=== PATIENT | female | born 1930 | race Caucasian/White ===

== ENCOUNTER 2016-10-12 08:28 | Inpatient (IN) | payer MEDICARE, OTHER, MEDICAID ==
[~2016-10-12] VITALS: Ht 170.2 cm; Wt 100.6 kg
--- NOTE | ~2016-10-12 | CATH ---
Cardiac Diagnostic + PCI Report Demographics Patient Name BRITTNEY Fatima Gender Female Date of 1930 Age 86 year(s) Patient Number [id number] Date of Study 10/12/2016 Visit Number [id number] Room Number G6317 [place] [id number] Ht 175 cm Wt 105 kg Referring [facility] [place] Primary Physician Physician Kaylene SMALL Performing [facility] [place] Secondary Physician Physician Kaylene SMALL Diagnostic [facility] [place] Assisting Physician Physician Kaylene SMALL Interventional [facility] [place] Physician Machine Scallop Cutter Physician Kaylene SMALL Findings and Conclusions Diagnostic Findings and Conclusion Subtotaled LAD 99% with grade 4 thrombus. Anterolateral STEMI. Moderate disease in mid RCA - medical therapy. Diagnostic Recommendations PCI of LAD is recommended. Interventional Findings and Conclusion Successful PCI of LAD with 1 MARINE, promus premier 3.0/16 stent deployed at 12 lindsay. Interventional Recommendations Will discuss with hospitalist team regarding need for Xarelto for DVT. I would prefer DAPT for 1 year. Patient will be observed overnight. Hydration and followup creatinine. Patient has been instructed to not lift anything more than 5 pounds for 1 week. Optimize LV systolic function. Aggressive medical therapy for coronary artery disease. Aggressive risk factor management. Statin. Beta Mary. GIOVANNA inhibitor is contraidicated . Dual Anti-platelet therapy. Optimization of medical therapy as an inpatient. Optimization of medical therapy as an outpatient. Cardiac diet . The patient will be observed in telemetry overnight and if stable, the patient will be allowed to return home in 48 hours if renal function stable, eGFR in 20's prior to cardiac cath. Procedure Description The patient was brought to the diagnostic cardiac catheterization-EP laboratory in the fasting, non-sedated state. Informed consent was obtained in the written and verbal form after the risks and benefits were explained. The patient had no further questions and agreed to proceed. The planned puncture-incision site(s) were shaved and prepped with ChloraPrep and draped in the usual sterile manner. Conscious sedation, supplemental oxygen, and pain control medications were delivered by a registered nurse under physician guidance. Surface ECG rhythm, blood pressure measurement, and pulse oximetry were monitored throughout the procedure. Arterial access. The access site was infiltrated with lidocaine. The vessel was entered with the Seldinger technique. A sheath was advanced into the vessel and used for catheter placement. Selective left coronary angiography. A catheter was advanced into the left coronary vessel ostium under Fluoroscopic guidance. Contrast was injected by hand. Images were obtained in multiple projections. Selective right coronary angiography. A catheter was advanced into the right coronary vessel ostium under fluoroscopic guidance. Contrast was injected by hand. Images were obtained in multiple projections. Left heart catheterization. A catheter was advanced across the aortic valve to the left ventricle under fluoroscopic guidance. Resting hemodynamics were obtained. Angioplasty and Stent Placement: A guiding catheter was used to intubate the vessel. A 0.14 wire was then used to cross the lesion. A balloon catheter was placed across the lesion and inflated. The balloon catheter was then removed. A Drug Eluting Stent was placed and inflated. Post placement angiograms were performed. Arterial artery hemostasis was achieved. The patient was transferred to a regular nursing floor via cart accompanied by a nurse. The patient left the laboratory in stable condition. Diagnostic Cath Status: Emergency Interventional Cath Status: Emergency Procedure Procedure Type Diagnostic procedure:Angiography:, Coronary Angios w/[facility] PCI procedure:Drug Eluting Coronary Stent:, LAD Indications: Acute IA with elevated troponin. The procedure was explained in detail to the patient. Risks, complications and alternative treatments were reviewed. Written consent was obtained. Medications Reviewed with Patient prior to Procedure. Angiographic Findings Dominance: Right Cardiac Arteries and Lesion Findings LMCA: Normal (0% Stenosis). LAD: Diag normal Lesion on Prox LAD: Proximal subsection.99% stenosis 14 mm length reduced to 0%. Pre procedure JESSICA I flow was noted. Post Procedure JESSICA III flow was present. The guidewire cross was successful.The lesion was diagnosed as a high risk lesion.Culprit lesion. Devices used - Runthrough NS .014 x 180. Number of passes: 1. - Emerge Balloon 2.5 x 20. 2 inflation(s) to a max pressure of: 12 lindsay. - Runthrough NS .014 x 180. Number of passes: 1. - Promus Premier 3.0 x 16 Stent. 2 inflation(s) to a max pressure of: 12 lindsay. LCx: Normal (0% Stenosis). RCA: PL and PDA normal Lesion on Prox RCA: Proximal subsection.50% stenosis . Coronary Tree Procedure Data Procedure Date Date: 10/12/2016Start: 09:10 AMEnd: 10:41 AM Entry Locations - Retrograde Percutaneous access was performed through the Right Radial artery (Primary location). A 6 Fr sheath was inserted. Unsuccessful closure attempt was performed using: an R band. Hemostasis was successfully obtained using Mechanical Compression. Closure Comments: R) band applied by Diomedes. 16 ml of air in band. Hematoma present around site. R) band removed. D stat radial band applied by Diomedes. Hand and arm wrapped to decompress hematoma. . Procedure Medications Order and Administration + + + + + !Time !Medication !Dosage !Route ! + + + + + !10/12/2016 09:08 !Versed !0.5 mg !I.V. ! !AM ! ! ! ! + + + + 10/12/2016 09:08 !Fentanyl !25 mcg !I.V. ! !AM ! ! ! ! + + + + + 10/12/2016 09:13 !Radial Verapamil !1.5 mg !I.A. ! !AM ! ! ! ! + + + + 10/12/2016 09:13 !Angiomax (Bivalirudin) !80 mg !I.V. bolus ! !AM !(ACC_5) ! ! ! + + + + + !10/12/2016 09:14 !Angiomax (Bivalirudin) !0.25 mg/kg/hr!I.V. bolus ! !AM !(ACC_5) ! ! ! + + + + 10/12/2016 09:15 !Oxygen !4 l/min ! ! !AM ! ! ! ! + + + + + 10/12/2016 09:36 !Fentanyl !25 mcg !I.V. ! !AM ! ! ! ! + + + + 10/12/2016 09:39 !Nipride !200 mcg !I.C. ! !AM ! ! ! ! + + + + + !10/12/2016 09:40 !Integrilin (ACC_7) !19 mg !I.V. bolus ! !AM ! ! ! ! + + + + + !10/12/2016 09:44 !Brilinta (Ticagrelor) !180 mg !P.O. ! !AM !(ACC_20) ! ! ! + + + + + !10/12/2016 10:04 !Angiomax (Bivalirudin) ! !I.V. bolus ! !AM !(ACC_5) ! ! ! + + + + + Devices Used - A6 Fr. JR4 Guide Catheterwas used for:Right coronary angiography. - A6 Fr. EBU 3.5 Guide Catheterwas used for:Left coronary angiography. Contrast Material - Isovue 91660 ml Fluoroscopy Time: Diagnostic: 13:06 minutes. Total: 13:06 minutes. Fluoroscopy Dose: Diagnostic: 1711 mGy. Total: 1711 mGy. Estimated Blood Loss: 15 ml. Additional [facility] PCI Information PCI Indication:Immediate PCI for STEMI. Medical History Performed Procedures and Imaging Results - No [facility] stress or imaging studies were performed. Allergies - Other:(vicadin and singular). Risk Factors The patient risk factors include:obesity, hypertension, diabetes mellitus, last creatinine: 2 mg/dl, creatinine clearance: 34.71 ml/min and renal failure. Admission Data Admission Date: 10/12/2016 Admission Time: 08:59 AM Insurance Payors: Medicare. Admission Medications + +------+-----+---------+---------+ + + !Medication !Dosage!Times!Last !Last !Administered !Comments ! ! ! !Per !Delivery !Delivery ! ! ! ! ! !Day !Date !Time ! ! ! + +------+-----+---------+---------+ + + !Aspirin (any) ! ! ! ! !Yes ! ! + +------+-----+---------+---------+ + + !Nitrates (iv or! ! ! ! !Yes ! ! !buccal) ! ! ! ! ! ! ! + +------+-----+---------+---------+ + + !Unfractionated ! ! ! ! !Yes ! ! !Heparin (any) ! ! ! ! ! ! ! + +------+-----+---------+---------+ + + Clinical Evaluation Leading to Procedure - The patient's CAD presentation was assessed as: STEMI. - The patient's anginal syndrome during the past two weeks was assessed as: Class IV according to the [place] Cardiovascular Society Classification System (CCS). Hemodynamics Condition: Rest O2 Consumption: Estimated: 210.35Heart Rate: 87 bpm Pressures (mmHg) +-----+ + !Site !Pressure ! +-----+ + !AO !142/72 (105) ! +-----+ + !LV !140/13 ,25 ! +-----+ + !LV !140/13 ,25 ! +-----+ + !AO !143/71 (104) ! +-----+ + !LV !143/13 ,25 ! +-----+ + Valve Gradients and Areas + +---------+---------+---------+ +---------+ + !Valve !Peak !Mean !Area !Index !Flow !Source ! + +---------+---------+---------+ +---------+ + !Aortic !3 !7 ! ! ! ! ! + +---------+---------+---------+ +---------+ + !Aortic !3 !7 ! ! ! ! ! + +---------+---------+---------+ +---------+ + Shunts Oxygen Values O2 Consumption 210.35 Signatures dtt: KAYLENE MACHADO dtd: 10/12/16 0910 Physician Self Edit
--- NOTE | ~2016-10-12 | CON ---
PATIENT'S NAME: ARI LUGO [facility] AGE: 86 Y [address] ROOM: [place] [address] LOCATION: GPCU ADMIT DATE: 10/12/2016 Consultation DISCHARGE DATE: FAMILY PHYSICIAN: Yesenia Gaitan PA-C ATTENDING PHYSICIAN: STAR MACHADO DATE OF CONSULTATION: 10/13/2016 REFERRING PHYSICIAN: Zoltan Singh This is a [facility] Nephrology consultation. REASON FOR CONSULTATION: CKD stage 3. HISTORY OF PRESENT ILLNESS: This is an 86-year-old female patient who presented to the [place] [facility] and was subsequently transferred to [facility] for higher level of care for cardiology needs with an ST elevation KS. The patient did undergo a left heart catheterization with PCI and stenting to the LAD by Dr. Maurice. The patient's creatinine at [place] prior to her transfer was 1.9. Today, her creatinine is 1.7 and therefore Nephrology has been asked to consult to help manage her CKD stage 3. The patient did receive IV contrast with her left heart catheterization. She does have a longstanding history of poorly controlled diabetes mellitus type 2, essential hypertension, and chronic gait instability requiring alf involvement. She does have a known history of CKD stage 3; however, she is unable to recall any of kidney problems in her past. She was recently treated for urinary tract infection. She does deny any NSAID use or PRATT-2 inhibitor use. She denies any GIOVANNA inhibitor or other nephrotoxic agents. At the time of exam, the patient is quite drowsy. I do note that on her MAR she does take a fair amount of gabapentin. Therefore, due to the patient's history of CKD, Dr. Singh has been asked to consult on the patient and provide recommendations for further management as an outpatient. PAST MEDICAL HISTORY: As listed above including, 1. CKD stage 3. 2. History of breast cancer, status post surgery. 3. Diabetes mellitus, poorly controlled. 4. Hypertension. 5. Diverticulosis. PATIENT'S NAME: ARI LUGO [facility] AGE: 86 Y [address] ROOM: [place] [address] LOCATION: GPCU ADMIT DATE: 10/12/2016 Consultation DISCHARGE DATE: FAMILY PHYSICIAN: Yesenia Gaitan PA-C ATTENDING PHYSICIAN: STAR MACHADO 6. GERD. 7. Hypothyroidism. 8. Gout. 9. Osteoarthritis. 10. Obesity. 11. History of DVT 5 years ago, on Xarelto therapy prior to her recent admission. ALLERGIES: TO SINGULAR AND VICODIN. CURRENT HOME MEDICATIONS: Include, 1. Acetaminophen 650 mg p.o. b.i.d. and q.4 hours p.r.n. pain. 2. Allopurinol 100 mg daily. 3. Atenolol 25 mg daily. 4. Refresh ophthalmic drops 1 drop each eye 4 times a day. 5. Eucalyptus cough drops every 8 hours p.r.n. 6. Lasix 20 mg p.o. t.i.d. 7. Gabapentin 600 mg p.o. q.h.s. and 300 mg p.o. b.i.d. 8. Robitussin DM 10 mL p.o. q.4 hours p.r.n. 9. Levemir 44 units subcu daily. 10. Levothyroxine 125 mcg p.o. daily. 11. Maalox p.r.n. 12. Milk of magnesia 30 mL p.o. p.r.n. 13. Mineral oil daily. 14. Omeprazole 40 mg p.o. daily. 15. Percocet 5/325 one tablet p.o. q.8 hours p.r.n. 16. Potassium 20 mEq p.o. daily. 17. Xarelto 20 mg p.o. daily (on hold). 18. Simethicone 80 mg p.o. q.3 hours p.r.n. 19. Spironolactone 25 mg p.o. b.i.d. 20. Tramadol 50 mg p.o. t.i.d. and 50 mg p.o. q.6 hours p.r.n. pain. FAMILY HISTORY: Reviewed and is negative for any history of renal disease or dialysis. Negative for coronary artery disease or stroke. SOCIAL HISTORY: The patient is and currently resides at [facility] in [place]. There is no history of tobacco abuse or alcohol use. REVIEW OF SYSTEMS: Essentially unable to obtain a full review of systems due to the patient's drowsy state and poor historian. There is no family available to offer any PATIENT'S NAME: ARI LUGO [facility] AGE: 86 Y [address] ROOM: [address] [place], [place] [address] LOCATION: GPCU ADMIT DATE: 10/12/2016 Consultation DISCHARGE DATE: FAMILY PHYSICIAN: Yesenia Gaitan PA-C ATTENDING PHYSICIAN: STAR MACHADO. She was noted to have right-sided chest discomfort prior to her arrival. PHYSICAL EXAMINATION: VITAL SIGNS: Blood pressure is 125/64, saturations are 88% on 2 L, pulse 82, respirations 20, and temperature 96.6. GENERAL: On exam, the patient is quite drowsy. She does arouse to calling. She is oriented x2. HEENT: Her head is normocephalic and atraumatic. Eyes: Pupils are equal and react briskly to light and accommodation. EOMs are intact. Nose midline. Mouth: No gingival bleeding. Throat is without lymphadenopathy or carotid bruits. No JVD. LUNGS: Sounds are diminished in the bases with occasional expiratory wheeze bilaterally, more so in the left than the right. She is on room air. CARDIOVASCULAR: Regular rate and rhythm. Unable to appreciate any murmurs, rubs, or thrills. There are occasional PVCs noted on telemetry. ABDOMEN: Soft, nontender, and nondistended. Bowel sounds are positive. EXTREMITIES: 1+ lower extremity edema bilaterally. She does have significant ecchymotic right hand and forearm. NEUROLOGICAL: The patient is hard of hearing. Mentation is slowed. LABORATORY DATA: WBCs 12.9, hemoglobin 13.7, hematocrit 41.3, and platelets 220. BUN is 30, creatinine 1.99, sodium and potassium are 131 and 4.1, chloride is 95, CO2 30, calcium 9.7, and glucose is elevated at 397. AST 24, ALT 25, bilirubin 0.5. Hemoglobin A1c was 13%. Chest x-ray shows enlarged cardiac silhouette. Increased interstitial opacities throughout both lungs. A prominence of the central pulmonary vessels suggesting interstitial edema and CHF. Superimposed chronic fibrotic changes may also contribute to this appearance. There is no discrete focal infiltrate, pleural effusion, or pneumothorax identified. ASSESSMENT AND PLAN: 1. Chronic kidney disease, stage 3-4. We will continue to monitor the patient's creatinine as well as urinary outputs closely. The patient did receive IV contrast with a left heart catheterization and is at high risk for developing contrast-induced nephropathy. She does have poorly controlled diabetes as well. We will continue to monitor. We would recommend IV hydration as tolerated. We will also recommend checking a vitamin D and PTH at this time. 2. ST-elevation myocardial infarction. The patient is status post percutaneous coronary intervention and stenting of the left anterior descending artery. Further recommendations per Dr. Maurice. 3. Diabetic neuropathy. We recommend decreasing the patient's gabapentin at this time due to her elevated renal function. We will discuss with Dr. Corrales. PATIENT'S NAME: ARI LUGO [facility] AGE: 86 Y [address] ROOM: [place] [address] LOCATION: GPCU ADMIT DATE: 10/12/2016 Consultation DISCHARGE DATE: FAMILY PHYSICIAN: Yesenia Gaitan PA-C ATTENDING PHYSICIAN: STAR MACHADO This patient has been seen and assessed by Dr. Singh. Her care is being conducted in consultation with Dr. Singh as well as me. We will plan further recommendations as they are forthcoming. AYDEE ANSARI DNP, REHAB/PRE VOCATIONAL COUNSELOR FOR MD STAN PISANO/modl /[id number] d: 10/14/[id number] t: 10/25/16 1151, CONSULTATION REPORT
--- NOTE | ~2016-10-12 | CON ---
PATIENT'S NAME: ARI MELTON [facility] AGE: 86 Y [address] ROOM: [place] [address] LOCATION: GPCU ADMIT DATE: 10/12/2016 Consultation DISCHARGE DATE: FAMILY PHYSICIAN: PHYSICIAN, UNKNOWN ATTENDING PHYSICIAN: STAR MACHADO DATE OF CONSULTATION: 10/12/2016 CARDIOLOGY CONSULTATION REPORT REASON FOR TRANSFER/CONSULTATION: STEMI. CHIEF COMPLAINT: Chest pain. HISTORY OF PRESENTING ILLNESS: The patient is a very pleasant 86-year-old female, who does not have any prior cardiac history. She has been a resident of the custodial for the past 4 to 5 years. She has numerous comorbidities. She went into the emergency room and her EKG showed ST elevation in the anterolateral leads with reciprocal ST depressions in the inferior leads for which Carlos Spann was called for STEMI. I asked them to give aspirin, heparin bolus and drip, and to arrange for air flight to get the patient directly to the cardiac catheterization lab. Upon arrival, patient was having significant amount of chest pain even en route. Her chest pain was about 9 to 10 on pain scale. She also was started on nitroglycerin drip en route. No significant shortness of breath. No other acute complaints. Her comorbidities include peripheral neuropathy, as well as history of breast cancer, hypothyroidism, diabetes mellitus, hypertension, hyperlipidemia, restless legs syndrome, tremors, chronic pain, hypertension, gastroesophageal reflux disease, diverticulosis of the colon, gout, and arthritis. She does not have any fever, chills, cough, or sputum production. She does not have any recent skin rashes. She does not have any bleeding in her stool or urine. The family reports that there may be history of dementia and loss of memory in PATIENT'S NAME: ARI MELTON [facility] AGE: 86 Y [address] ROOM: [place] [id number] LOCATION: GPCU ADMIT DATE: 10/12/2016 Consultation DISCHARGE DATE: FAMILY PHYSICIAN: PHYSICIAN, UNKNOWN ATTENDING PHYSICIAN: STAR MACHADO the recent past that they have been noticing. She does ambulate with a walker. Her functional capacity is quite poor. She does not have any stroke-like symptoms, changes in speech, or sensation swallowing. REVIEW OF SYSTEMS: Review of systems obtained from patient and pertinent positives and negatives mentioned in the History of Present Illness. PAST MEDICAL HISTORY: 1. Breast cancer. 2. Hypothyroidism. 3. Diabetes mellitus, type 2, insulin dependent. 4. Hypokalemia. 5. Hypothyroidism. 6. Restless legs syndrome. 7. Chronic pain. 8. Hypertension. 9. GERD. 10. Diverticulosis of the colon. 11. Gout. 12. Arthritis. PAST SURGICAL HISTORY: 1. Right hip hemiarthroplasty. 2. Bowel surgery for diverticulosis with colostomy bag. 3. Breast cancer status post right mastectomy. 4. Appendectomy. MEDICATIONS: Please see MAR. SOCIAL HISTORY: The patient does not smoke or drink alcohol. She is and lives at [facility]. ALLERGIES: SINGULAIR AND VICODIN. FAMILY HISTORY: No premature coronary artery disease or sudden cardiac . PHYSICAL EXAMINATION: PATIENT'S NAME: ARI MELTON [facility] AGE: 86 Y [address] ROOM: [place] [address] [facility] ADMIT DATE: 10/12/2016 Consultation DISCHARGE DATE: FAMILY PHYSICIAN: PHYSICIAN, UNKNOWN ATTENDING PHYSICIAN: STAR MACHADO VITAL SIGNS: She is afebrile. Pulse 60, respirations 16, blood pressure 120/70, and oxygen saturation 99% on room air. GENERAL: She is an elderly female, very comfortable does not have any chest discomfort right now. Alert and oriented. She does seem a little bit confused at times. She does answer questions appropriately and is cooperative. SKIN: Warm and dry. HEENT: Head; normocephalic and atraumatic. Extraocular movements intact. Sclerae are white. Mucous membranes moist. NECK: No JVD. HEART: S1 and S2. Regular rate and rhythm. A 2/6 systolic murmur at second rib. LUNGS: Clear to auscultation bilaterally. Radial pulses feeble 1+. No significant lower extremity edema. ABDOMEN: Soft. NEUROLOGIC: Able to move all extremities against gravity. Speech is normal. MUSCULOSKELETAL: Restricted range of motion in her legs and hips. IMAGING STUDIES: EKG; normal sinus rhythm, with ST elevation in the anterolateral leads with ST depressions in the inferior leads. LABORATORY DATA: Labs: CBC; WBC is 11.6, H and H are 14.8 and 46.8, and platelets are 230,000. She does have intraventricular conduction delay. Her creatinine was 2.2 from the outside hospital and GFR less than 30. Echocardiogram done in October of 2015 showed normal LV systolic function, LVEF of 55% to 60%, mild diastolic dysfunction, mild aortic valve calcification, mild mitral valve thickening, and mild MR and TR. Her proBNP today is 1354. Her troponin is 10.1, CPK is 1012, and CK-MB is 72. IMPRESSION AND PLAN: 1. Anterolateral ST-elevation myocardial infarction. Suspicious for left anterior descending occlusion. 2. Hypertension. 3. Hyperlipidemia. 4. Chronic kidney disease, stage 4. 5. Diabetes mellitus type 2, insulin dependent. 6. History of diverticulosis. 7. History of breast cancer. 8. Memory loss ? Alzheimer. Plan: The patient will be taken emergently to the cardiac catheterization lab for emergent/primary percutaneous coronary intervention and final plans will be made after that. We will continue her home medications. As far as the kidneys, we will use the least amount of contrast. At this point, the PATIENT'S NAME: ARI MELTON [facility] AGE: 86 Y [address] ROOM: [place] [address] [facility] ADMIT DATE: 10/12/2016 Consultation DISCHARGE DATE: FAMILY PHYSICIAN: PHYSICIAN, UNKNOWN ATTENDING PHYSICIAN: STAR MACHADO benefits are greater than the risks. The patient is a full code and wants everything done. The patient is agreeable to proceed with plan. We will optimize her cardiac medications and adjust her medications accordingly. Remote history of deep vein thrombosis several years ago for which she is on Xarelto. We need to determine the need to continue the Xarelto. Thank you very much for allowing us to participate in the care of Ms. Melton. We will have the patient admitted to hospitalist team since she has numerous comorbidities to help manage those as well as keep an eye on her kidney function. STAR MACHADO MD AT/modl /[id number] d: 10/12/16 1940 t: 10/15/16 1704, CONSULTATION REPORT
--- NOTE | ~2016-10-12 | CON ---
PATIENT'S NAME: ARI LUGO [facility] AGE: 86 Y [address] ROOM: [place] [address] LOCATION: GPCU ADMIT DATE: 10/12/2016 Consultation DISCHARGE DATE: FAMILY PHYSICIAN: PHYSICIAN, UNKNOWN ATTENDING PHYSICIAN: STAR MACHADO DATE OF CONSULTATION: 10/12/2016 CHIEF COMPLAINT: Medical management in the setting of ST-elevation ND. HISTORY OF PRESENTING ILLNESS: This 86-year-old white female with prior history of diabetes mellitus type 2, essential hypertension, and chronic gait instability. She was admitted to [facility] today by Dr. Wade with ST-elevation ND. Briefly, she was awoken around 05:30 this morning with right-sided burning chest pain. She states it was unlike any pain that she has ever experienced before. It did make her little nauseated and she vomited. She notified nursing staff and was taken to the [place] [facility] where ST- elevation ND was identified. Dr. Wade was consulted and she was transferred here emergently and taken to the labelling machine operator. She did undergo emergent cardiac catheterization with PCI and intervention. After the procedure, she has been transferred to the floor and feeling "better." She was noted to have significant renal impairment, although it is not documented well. She does have a history of chronic kidney disease, stage III. She denies any knowledge of previous kidney problems, although she was recently diagnosed and treated with urinary tract infection. Presently, she complains of a headache, but is feeling better now. She denies dizziness or nausea. No chest pain, shortness of breath, or abdominal pain. She has an ostomy bag and that has been functioning normally as of late. She denies any urinary complaints. Her appetite has been good. She eats and drinks normally. Family indicates that she has not adhered to a diabetic diet. Additionally, her blood sugars have not been well controlled. She ambulates with the use of a walker. She has not had any recent falls. ALLERGIES: SINGULAR AND VICODIN. ILLNESSES: 1. Breast cancer, status post surgery, no active disease. 2. Diabetes mellitus type 2. PATIENT'S NAME: ARI LUGO [facility] AGE: 86 Y [address] ROOM: [place] [id number] [facility] ADMIT DATE: 10/12/2016 Consultation DISCHARGE DATE: FAMILY PHYSICIAN: PHYSICIAN, UNKNOWN ATTENDING PHYSICIAN: STAR MACHADO 3. Essential hypertension. 4. Diverticulosis, status post bowel resection and colostomy placement. 5. Gastroesophageal reflux disease. 6. Hypothyroidism. 7. Chronic kidney disease, stage III. 8. Gout. 9. Osteoarthritis. 10. Obesity. 11. History of DVT 5 years ago. CURRENT MEDICATIONS: 1. Acetaminophen 650 mg p.o. b.i.d. and q.4 hours p.r.n. 2. Allopurinol 100 mg p.o. daily. 3. Atenolol 25 mg p.o. daily. 4. Refresh ophthalmic drops 1 drop each eye 4 times a day. 5. Eucalyptus cough drops every 8 hours p.r.n. 6. Lasix 20 mg p.o. t.i.d. 7. Gabapentin 600 mg p.o. q.h.s. and 300 mg p.o. b.i.d. 8. Robitussin DM 10 mL p.o. q.4 hours p.r.n. 9. Insulin Levemir 44 units subcu daily. 10. Levothyroxine 125 mcg p.o. daily. 11. Maalox p.r.n. 12. Milk of magnesia 30 mL p.o. daily p.r.n. 13. Mineral oil daily. 14. Omeprazole 40 mg p.o. daily. 15. Percocet 5/325 one tablet p.o. q.8 hours p.r.n. 16. Potassium 20 mEq p.o. daily. 17. Xarelto 20 mg p.o. daily. 18. Simethicone 80 mg p.o. q.3 hours p.r.n. 19. Spironolactone 25 mg p.o. b.i.d. 20. Tramadol 50 mg p.o. t.i.d. and 50 mg p.o. q.6 hours p.r.n. for pain. FAMILY HISTORY: Negative for heart disease or stroke. SOCIAL HISTORY: She is and currently resides at [facility] in [place]. There is no significant history of tobacco or alcohol use. REVIEW OF SYSTEMS: As per HPI. All other organ systems reviewed and are negative. OBJECTIVE: VITAL SIGNS: Temperature 97.6, pulse 82, respirations 20, blood pressure 125/64, and O2 saturation 88% on 2 L per nasal cannula. PATIENT'S NAME: ARI LUGO [facility] AGE: 86 Y [address] ROOM: [place] [address] LOCATION: GPCU ADMIT DATE: 10/12/2016 Consultation DISCHARGE DATE: FAMILY PHYSICIAN: PHYSICIAN, UNKNOWN ATTENDING PHYSICIAN: STAR MACHADO GENERAL: She is anxious, cooperative, a little hard of hearing, but in no acute distress. She is oriented x2. SKIN: Supple, pale, warm, and dry. No obvious rashes. Wound overlying the right wrist is clean and intact. HEENT: Otherwise, normocephalic. Sclerae nonicteric. Pupils are equal, round, and reactive to light and accommodation. Extraocular movements appear intact. Nasal turbinates normal in appearance. Oropharynx clear. Mucous membranes are pink and moist. NECK: Supple, plethoric, and obese. No masses or adenopathy. No thyromegaly. No JVD. CHEST: Chest wall is symmetrical. HEART: Regular with occasional extrasystoles. LUNGS: Diminished at the bases. No crackles or wheezes are heard. ABDOMEN: Soft and obese. Nontender. Bowel sounds present. No mass or hepatosplenomegaly. An ostomy is present in the left lower quadrant, which appears to be functioning normally. EXTREMITIES: Display 1 to 2+ pitting edema. No cyanosis. NEUROLOGIC: Hard of hearing, mentation is slowed, but there are no focal deficits. LABORATORY AND X-RAY DATA: Post procedure 12-lead EKG shows sinus rhythm with first-degree AV block, no significant ST abnormalities. CBC showed a white blood cell count of 12.9, hemoglobin 13.7, hematocrit 41.3, and platelets 220. Chemistries from [place] demonstrate BUN and creatinine of 30 and 1.99 respectively, sodium and potassium 131 and 4.1, chloride and CO2 were 95 and 30, calcium was 9.7, glucose was elevated at 397, AST and ALT 24 and 25, bilirubin was 0.5, troponin was elevated at 0.47, and CK-MB 4.8. An echo from October 2015 showed an ejection fraction of 55% to 60%, diastolic dysfunction. Hemoglobin A1c was 13%. Urinalysis remarkable only for a 1000 of glucose, 0 to 2 wbc's, and 2 to 5 rbc's. Chest x-ray demonstrates no acute cardiopulmonary abnormality. ASSESSMENT AND PLAN: 1. Diabetes mellitus type 2, uncontrolled. We will initiate sliding scale insulin in addition to the Levemir. Continue with Accu-Cheks regularly tonight and assess her insulin needs. We will consider adjusting the Levemir accordingly. Spent some time discussing this with the patient and her family, and they reflect lot of dietary indiscretion. It may be reasonable to consider adjusting her diet at the [facility] and more consistent blood sugar monitoring. 2. Acute kidney injury in the setting of chronic kidney disease, stage III. Suspect prerenal etiology. We will withhold any potentially nephrotoxic evaluations or medications. Follow this serially. Plan to get renal ultrasound in the morning and follow up on that when the results are known. Suspect progression of diabetic nephrosclerosis as a contributing PATIENT'S NAME: MANNY LUGOINE Kushal [facility] AGE: 86 Y [address] ROOM: [place] [address] LOCATION: GPCU ADMIT DATE: 10/12/2016 Consultation DISCHARGE DATE: FAMILY PHYSICIAN: PHYSICIAN, UNKNOWN ATTENDING PHYSICIAN: STAR MACHADO. Work on tighter glycemic control as above. 3. Deep vein thrombosis by history. This was a singular event over 5 years ago. There does not appear to be any clear indication for a long-term anticoagulation. Agree with stopping the Xarelto. 4. Essential hypertension, adequately controlled. We will monitor the trend and make the additional adjustments of the regimen if necessary. 5. ST-elevation myocardial infarction status post percutaneous coronary intervention with stenting, currently clinically stable. Continue with aspirin, Brilinta, and statin therapy. Plan, continued clinical followup. 6. Diverticulosis, status post bowel resection with ostomy placement. As above, the ostomy appears to be functioning normally. 7. Gait instability, chronic. She may benefit from some physical therapy and occupational therapy. We will review this with Cardiology, although she may eventually be referred to cardiac rehab. 8. Morbid obesity. We will need to work on some long-term strategies for weight loss including balanced dietary intake, calorie reduction, increased exercise, etc. 9. Gout, currently clinically asymptomatic. The allopurinol is on hold. We will check uric acid level in the morning. 10. Deep venous thrombosis prophylaxis. We will mobilize as she is physically able. MD NICK COURTNEY/ajith /[id number] d: 10/12/161930 t: 10/12/162000, CONSULTATION REPORT
--- NOTE | ~2016-10-12 | ECHO ---
Transthoracic Echocardiography Report (TTE) Demographics Patient Name ARI LUGO Date of Study 10/13/2016 Patient Number [id number] Visit Number [id number] Date of 1930 Room Number G6317 Gender Female Number Age 86 year(s) Referring Arnie Yesenia [facility] Polymer Chemist Judie Morton RVT, Physician Singh Maurice RDCS, MD Physician Interpreting Singh Maurice Deli/Bakery Associate Physician MD Supervising Ordering Singh Maurice MD/MLP Physician MD Nurse Stress President & Ceo Conclusions Summary Technically difficult exam. Definity used to better delineate endocardial borders. The estimated left ventricular ejection fraction is 25-30%. The entire apex is akinetic, severe anterior and anteroseptal wall hypokinesis. No LV apical thrombus. Severe concentric left ventricular hypertrophy. Diastolic assessment reveals Grade I diastolic dysfunction. The right atrium is mildly dilated. Mild mitral annular calcification. Mild tricuspid regurgitation by color Doppler. There is mild pulmonary hypertension. The pulmonary pressure (RVSP) is 42 mmHg. Small pericardial effusion. Procedure Type of Study TTE procedure:2D Echocardiogram. Procedure Date Date: 10/13/2016 Start: 08:50 AM Study Location: Inpatient Portable Technical Quality: Fair Indications:Myocardial infarction. Appropriate Use Criteria: 8 Patient Status: Routine Contrast Medium: Definity. Amount - 2.5 ml HR: 73 bpm BP: 126/60 mmHg Allergies - Other:(vicadin and singular). M-Mode/2D Measurements LV Diastolic Dimension: 4.13 cm LV Systolic Dimension: 3.66 cm LV Septum Diastolic: 2.06 cm LV PW Diastolic: 1.81 cm AO Root Dimension: 2.7 cm Cardiac Output: 3.93 l/min AV Cusp Separation: 1.6 cm RV Diastolic Dimension: 3.52 cm LA volume: 48 ml LVOT: 1.9 cm RV Base: 3.25 cm LVOT VTI: 19 cm RV Mid: 3.21 cm LV Stroke volume: 53.84 ml TAPSE: 9.21 cm TDI-S': 1.84 cm/s Doppler Measurements AV Peak Velocity: 1.02 m/s MV Peak E-Wave: 0.85 m/s AV Peak Gradient: 4.16 mmHg MV Peak A-Wave: 1.24 m/s AV Mean Gradient: 3 mmHg MV E/A Ratio: 0.68 LVOT Peak Velocity: 0.92 m/s MV Deceleration Time: 187 msec TR Velocity:3.04 m/s TR Gradient:36.97 mmHg Estimated PASP: 41.97 mmHg Estimated RAP:5 mmHg A' Septal Velocity: 0.07 m/s Estimated RVSP: 42 mmHg A' Lateral Velocity: 0.11 m/s E' Septal Velocity: 0.03 m/s E' Lateral Velocity: 0.05 m/s Findings Left Ventricle Severe concentric left ventricular hypertrophy. Diastolic assessment reveals Grade I diastolic dysfunction. Right Ventricle Normal right ventricle structure and function. Left Atrium Normal left atrial size. There is no evidence of patent foramen ovale or atrial septal defect by color Doppler. Right Atrium The right atrium is mildly dilated. Mitral Valve Mild mitral annular calcification. Aortic Valve The aortic valve is mildly sclerotic. Tricuspid Valve Mild tricuspid regurgitation by color Doppler. There is mild pulmonary hypertension. The pulmonary pressure (RVSP) is 42 mmHg. Pulmonic Valve Normal pulmonic valve structure and function. Pericardial Effusion Small pericardial effusion. Miscellaneous Visualized portions of the aortic root and ascending aorta appear normal in size. Pleural Effusion No evidence of pleural effusion. Signature dtt: STAR MACHADO dtd: 10/13/16 0850 Physician Self Edit
--- NOTE | ~2016-10-12 | DS ---
PATIENT'S NAME: ARI LUGO [facility] AGE: 86 Y [address] ROOM: [address] [place] [address] LOCATION: GPCU ADMIT DATE: 10/12/2016 Discharge Summary DISCHARGE DATE: 10/16/2016 FAMILY PHYSICIAN: Yesenia Gaitan PA-C ATTENDING PHYSICIAN: Kaylene Winters PRIMARY DISCHARGE DIAGNOSIS: Acute anterolateral ST elevated myocardial infarction. SECONDARY DIAGNOSES: 1. Coronary artery disease. 2. Ischemic cardiomyopathy. 3. Chronic kidney disease. 4. Hyperlipidemia. 5. Ejection fraction of 25 to 30%. 6. Acute systolic congestive heart failure. 7. Diabetes mellitus. 8. Dementia. PROCEDURES: Selective coronary angiography and percutaneous intervention with a drug-eluting stent placement to the LAD. HOSPITAL COURSE: This is an 86-year-old female admitted from a senior care with complaints of chest pain. Please see history and physical for full details of admission. The patient emergently transferred to the catheterization suite due to having an ST elevated myocardial infarction. She underwent a selective coronary angiography and percutaneous intervention with a drug-eluting stent placement to her LAD through her right radial artery. There was a hematoma with the closure device and was subsequently decompressed. The patient was then transferred to the Progressive Care Unit for continued monitoring of her EKG, postprocedure vital signs, and procedure site. A consult was placed to the Hospitalist Service to assist with medical management. On 12/13/2016, the patient had a nephrology consult placed due to [id number] kidney disease. On 10/14/2016, a urinalysis for electrolytes and osmolality as well as a serum osmolality showed a questionable contrast induced nephropathy. On 10/15/2016, her baseline creatinine returned to normal, and an overnight trend ox was placed to check for need prior to discharge. An order was also placed for a LifeVest due to the patient's acute systolic congestive heart failure and ischemic cardiomyopathy with an ejection fraction of 25 to 30%. On 10/16/2016, the patient was found to be ready to be discharged to home. DIAGNOSTICS: Cardiac enzyme evaluation during hospitalization showed an admission evaluation with a CPK of 1012, CK-MB of 72, and troponin I of 10.1. Cardiac enzymes peaked with a CPK of 3195, CK-MB of 345, and troponin I of PATIENT'S NAME: ARI LUGO [facility] AGE: 86 Y [address] ROOM: [id number] [place] [address] LOCATION: GPCU ADMIT DATE: 10/12/2016 Discharge Summary DISCHARGE DATE: 10/16/2016 FAMILY PHYSICIAN: Yesenia Gaitan PA-C ATTENDING PHYSICIAN: Kaylene Winters. Upon discharge, her cardiac enzymes showed a CPK of 432, CK-MB of 16.7, and troponin I of 36.2. Renal function upon admission showed a BUN and creatinine of 25 and 1.7 with a GFR of 29, and upon discharge, she had a BUN and creatinine of 26 and 2.0 respectively with a GFR of 24. She had a proBNP of 16,545 on discharge. A lipid evaluation showed a total cholesterol of 208, triglycerides 224, HDL of 34, and LDL of 130. DISCHARGE ORDERS: The patient is discharged back to [facility]. She is to follow up with Dr. Fulton in [place] in 3 to 4 days and then will follow up with Dr. Kaylene Winters in 2 weeks in [place] with a BMP, proBNP, fasting lipid panel, and an EKG. She will have lab work with her primary care provider as well as having a CBC and a BMP at that time. She is to follow a cardiac diet of low fat, low salt, and low cholesterol. She will have therapies with occupational and physical therapy. She does have a 10-pound lifting restriction for 1 week. DISCHARGE MEDICATIONS: 1. Tylenol 650 mg p.o. twice daily. 2. Tylenol 650 mg p.o. every 4 hours as needed for pain, not to exceed 3000 mg of Tylenol in a 24-hour period. 3. Aspirin enteric coated 81 mg p.o. daily. 4. Lipitor 40 mg p.o. daily at bedtime. 5. Lasix 40 mg p.o. daily. 6. Neurontin 100 mg p.o. 3 times daily. 7. NovoLog subcu on a moderate sliding scale per a.c. and h.s. Accu-Cheks. 8. Levemir 44 units subcu daily. 9. Synthroid 125 mcg p.o. daily. 10. Toprol-XL 25 mg p.o. daily. 11. Omeprazole 40 mg p.o. daily. 12. Brilinta 90 mg p.o. twice daily. 13. Glucagon 1 mg subcu p.r.n. hypoglycemia. 14. Glucose tabs 16 g p.o. as needed for hypoglycemia. 15. Robitussin DM 10 mL p.o. every 4 hours as needed for cough. 16. Milk of magnesia 30 mL p.o. daily as needed for constipation. 17. Nitroglycerin 0.4 mg sublingual as needed for chest pain. 18. Simethicone 80 mg p.o. every 3 hours as needed for indigestion. 19. Potassium chloride 20 mEq p.o. daily. 20. Ultram 50 mg p.o. 3 times daily. 21. Ultram 50 mg p.o. every 6 hours as needed for pain, not to exceed 400 mg in a 24-hour period. 22. Percocet 5/325 mg p.o. every 8 hours as needed for pain, not to exceed 3000 mg of Tylenol in a 24-hour period. 23. Zyloprim 100 mg p.o. daily. 24. Refresh eye drops four times daily as needed for dry eyes. 25. Refresh ointment to eyes four times daily as needed for dry eyes. PATIENT'S NAME: ARI LUGO [facility] AGE: 86 Y [address] ROOM: [address] [place] [address] [facility] AD[facility] DATE: 10/12/2016 Discharge Summary DISCHARGE DATE: 10/16/2016 FAMILY PHYSICIAN: Yesenia Gaitan PA-C ATTENDING PHYSICIAN: Kaylene Winters 26. Maalox 30 mL p.o. every 2 hours as needed for indigestion. 27. Eucalyptus cough drops one lozenge every 8 hours as needed for cough. 28. Refresh eye drops every 8 hours as needed for dry eyes. DISPOSITION: The patient is discharged to [facility] with her discharge packet for nursing instructions, with diet, activity, medications, and followup appointments. She is also discharged with a LifeVest in place. JEOVANNY LARSON APRN FOR KAYLENE KATIAALEKSANDERMD GARNICA/ajith /[id number] d: 10/22/16 0506 t: 11/05/16 1334, DISCHARGE SUMMARY
--- NOTE | ~2016-10-12 | PUL ---
PATIENT'S NAME: ARI LUGO [facility] AGE: 86 Y [address] ROOM: [place] [address] LOCATION: GPCU ADMIT DATE: 10/12/2016 Pulmonary DISCHARGE DATE: 10/16/2016 FAMILY PHYSICIAN: Yesenia Gaitan PA-C ATTENDING PHYSICIAN: Kaylene Winters NAME OF PROCEDURE: Overnight Pulse Oximetry DATE OF PROCEDURE: October 15 to October 16, 2016 REASON FOR EXAM: Nocturnal hypoxemia RESULTS: The test was performed on room air. The recording time was 9 hours, 2 minutes and 56 seconds, with a total valid sampling time of 8 hours, 42 minutes, and 4 seconds. The highest pulse was 108, lowest pulse was 69, with a mean pulse of 90. The highest SpO2 was 99%, lowest SpO2 was 87%, with a mean SpO2 of 91.8%. The patient spent 3 minutes, and 40 seconds with SpO2 less than 89%, representing 0.7% of the total sleep time, and 21 minutes and 20 seconds with oxygen saturations less than 90%. The desaturation event index was elevated at 7.9. PHYSICIAN INTERPRETATION: The patient does not have evidence of significant nocturnal hypoxia, unless she has evidence of heart failure/cor pulmonale. Clinical correlation is advised. MD JENNIFER LOBO/kaylie /[id number] dtt: 10/20/16 1620 , RASHAD SHAH dtd: 10/20/16 1323
[2016-10-12 10:17] LABS: BASOPHIL # 0.1 K/uL (0.0-0.2); BASOPHIL % 0.5 %; EOSINOPHIL % 0.3 %; HEMATOCRIT 41.3 % (30.0-46.0); HEMOGLOBIN 13.7 g/dL (10.0-15.0); IMMATURE GRANULOCYTE # 0.1 K/uL (0.0-0.3); IMMATURE GRANULOCYTE % 0.6 %; LYMPHOCYTE # 0.9 K/uL (0.8-4.0); LYMPHOCYTE % 6.7 %; MCH 29.9 pg (27.0-34.0); MCHC 33.2 gm/dL (32.0-36.5); MCV 90.2 fl (83.0-98.0); MONOCYTE # 0.5 K/uL (0.0-1.0); MONOCYTE % 4.2 %; MPV 11.7 fl (9.4-12.4); NEUTROPHIL # (ANC) 11.3 K/uL (1.8-7.8); NEUTROPHIL % 87.7 %; NRBC % 0 /100WBC (0-0.00); PLATELET COUNT 220 K/uL (150-450); RBC 4.58 M/uL (3.00-5.00); RDW-CV 14.9 % (11.9-14.6); WBC 12.9 K/uL (4.0-11.0)
[2016-10-12] MEDS ORDERED: TYLENOL325 MG PO ×2 (11:06→11:32)
[2016-10-12] MEDS ORDERED: LASIX40 MG PO (11:11)
[2016-10-12] MEDS ORDERED: TENORMIN25 MG PO (11:12)
[2016-10-12] MEDS ORDERED: ZYLOPRIM100 MG PO (11:14)
[2016-10-12] MEDS ORDERED: K-TAB ER20 MEQ PO (11:15)
[2016-10-12] MEDS ORDERED: NEURONTIN600 MG PO (11:15)
[2016-10-12] MEDS ORDERED: ULTRAM50 MG PO ×2 (11:16→11:30)
[2016-10-12] MEDS ORDERED: PRILOSEC20 MG PO (11:17)
[2016-10-12] MEDS ORDERED: LEVOTHROID (S125 MCG PO (11:17)
[2016-10-12] MEDS ORDERED: XARELTO20 MG PO (11:23)
[2016-10-12] MEDS ORDERED: ALDACTONE25 MG PO (11:24)
[2016-10-12] MEDS ORDERED: NEURONTIN100 MG PO (11:25)
[2016-10-12] MEDS ORDERED: REFRESH TEARS15 ML OPHTH ×2 (11:26→11:34)
[2016-10-12] MEDS ORDERED: REFRESH P.M. O3.5 GM OPHTH (11:28)
[2016-10-12] MEDS ORDERED: MILK OF MA400 MG/5 M PO (11:28)
[2016-10-12] MEDS ORDERED: MAALOX ADVANCE355 ML PO (11:29)
[2016-10-12] MEDS ORDERED: ROBITUSSIN DM120 ML PO (11:31)
[2016-10-12] MEDS ORDERED: COUGH DROPS1 EACH PO (11:33)
[2016-10-12] MEDS ORDERED: PERCOCET 5-3251 EACH PO (11:36)
[2016-10-12] MEDS ORDERED: MYLICON OR GAS-80 MG PO (11:37)
[2016-10-12] MEDS ORDERED: LEVEMIR100 UNIT/1 SUB-Q (11:42)
[2016-10-12 12:39] LABS: BILIRUBIN URINE NEGATIVE (NEGATIVE); BLOOD URINE 250 /UL (NEGATIVE); COLOR URINE STRAW (YELLOW); GLUCOSE URINE 1000 mg/dL (NEGATIVE); KETONE URINE NEGATIVE (NEGATIVE); LEUKOCYTES URINE 100 /UL (NEGATIVE); NITRITE URINE NEGATIVE (NEGATIVE); PH URINE 6.5 (4.0-8.0); PROTEIN URINE 30 mg/dL (NEGATIVE); TURBIDITY URINE 1+ (CLEAR); UROBILINOGEN URINE NORMAL (NORMAL)
[2016-10-12 12:47] LABS: WBC URINE 0-2 #/HPF (NEGATIVE)
[2016-10-12 12:48] LABS: BACTERIA URINE FEW (NEGATIVE); EPITHELIAL URINE RARE #/HPF (NEGATIVE); YEAST URINE MANY (NEGATIVE)
--- NOTE | 2016-10-12 16:40 | NUR ---
1045 PT ADMITTED TO [id number] PANDYA AND [facility] POST STEMI HEART CATH. AT TIME OF ADMIT PT IS ALERT, SLIGHTLY DISORIENTED, BUT DAUGHTER SAYS THIS IS HER BASE LINE. SHE IS FROM A [place]USTOD[facility] IN [place], WOKE THIS AM WITH CHEST PAIN, WENT TO [facility] THEN [facility]ARE HERE AND STRAIGHT TO SENIOR ART DIRECTOR FOR A STENT TO THE LAD. RT RADIAL APPROACH. WHENPT GOT TO ME AT 1045, RT HAND WAS PURPLE AND VERY COOL TO TOUCH, R BAND ON AND WRAPPED IN COBAN FROM FINGER TIPS TO ALMOST HER ELBOW. PT HAD BEEN TAKING ELIQUIST AT HOME. SITE FROM HRT CATH WAS NOT LEAKING BUT SITE OF LIDOCAIN INJECTION WAS SEEPING SOME, NOT ALOT BUT STEADILY. ARM WAS ON AN ARM BOARD. DAUGHTER AND GRAND DAUGHTER IN ROOM AND ARE THE HISTORIANS FOR THE PT, ALTHOUGH SHE HAS BEEN IN THE CUSTODIAL FOR 5 OR SO YEARS, SO THEY DON'T SEEM TO KNOW ALOT ABOUT HER HISTORY. 1215 DR PANDYA IN TO SEE PT AND RT WRIST NEW ORDERS RECEIVED. SENIOR ART DIRECTOR NURSES HERE TO REWRAP WRIST AND TRY TO REDUCE HEMATOMA. COABN OFF, R BAND OFF. DESTAT ON SITE OF CATH STICK, AND TEGADERM PLACED VERY SNUGGLY ACROSS THE TOP OF THAT ORDERED. FINGERS AND HAND OVERALL IS WARMER NOW AND LESS PURPLE. NAIL BEDS BRISA BUT SLUGGISHLY. PULSES IS PALPABLE AND FAIRLY STRONG. ARM IS STILL ON AN ARM BOARD. ARM ELEVATED ON TWO PILLOWS AND A WARM BLANKET AROUND THAT. ABLE TO GET SATS NOW FROM THOSE FINGERS. BUT THEY ARE STILL COOL TO THE TOUCH. 1400 ARM REMAINS ELEVATED ON PILLOWS. STILL SWOLLEN AND VERY TENDER ON THE TOP OF HER HAND WHERE THAT LARGEST PART OF THE HEMATOMA WAS. PT DENIES ANY PAIN UNLESS YOU START MESSING WITH THE TOP OF HER HAND OR SQUEEZE SLIGHTLY TO PALPATE A RADIAL PULSE. PT HAS DENIED CHEST PAIN SINCE ARRIVAL TO PCU. NTG 3 MICS AND NS 100 FOR 500 MLS CONTINUE. 1600 NO CHANGES IN ASSESSMENTS. ARM STILL COOL TO TOUCH, BUT HAS NOT GOTTEN ANY WORSE, STILL ABLE TO PALPATE RADIAL PULSE. NO CHANGES IN SWELLING. VERY SLIGHT AMT OF DRAINAGE TO DESTAT SINCE SENIOR ART DIRECTOR CHANGED IT AT 1245. WRAPPED IN BLANKET AND ON PILLOWS. DAUGHTER IN AND OUT OF ROOM. PT DENIES NEEDS OR PAIN.
[2016-10-13 04:05] LABS: BASOPHIL # 0.1 K/uL (0.0-0.2); BASOPHIL % 0.5 %; EOSINOPHIL # 0.2 K/uL (0.0-0.5); EOSINOPHIL % 1.7 %; HEMATOCRIT 41.2 % (30.0-46.0); HEMOGLOBIN 13.4 g/dL (10.0-15.0); IMMATURE GRANULOCYTE # 0.1 K/uL (0.0-0.3); IMMATURE GRANULOCYTE % 0.5 %; LYMPHOCYTE # 1.3 K/uL (0.8-4.0); LYMPHOCYTE % 10.4 %; MCH 29.8 pg (27.0-34.0); MCHC 32.5 gm/dL (32.0-36.5); MCV 91.6 fl (83.0-98.0); MONOCYTE # 0.9 K/uL (0.0-1.0); MONOCYTE % 7.1 %; MPV 11.8 fl (9.4-12.4); NEUTROPHIL # (ANC) 10.3 K/uL (1.8-7.8); NEUTROPHIL % 79.8 %; NRBC % 0 /100WBC (0-0.00); PLATELET COUNT 203 K/uL (150-450); RDW-CV 15.1 % (11.9-14.6); WBC 12.9 K/uL (4.0-11.0)
[2016-10-13 04:26] LABS: ALBUMIN 2.5 gm/dL (3.5-5.0); ANION GAP 12.3 (10.0-19.0); CALCIUM 8.4 mg/dL (8.5-10.5); CREATININE 1.7 mg/dL (0.5-1.1); POTASSIUM 4.3 mMol/L (3.7-5.1); TOTAL BILIRUBIN 0.6 mg/dL (0.0-1.5); TOTAL PROTEIN 6.2 g/dL (6.0-8.4)
--- NOTE | 2016-10-13 06:48 | NUR ---
Significant Event: Patient disoriented to time and place. Oriented to person. Forgetful. Makes confused statements at times. SBP 90s-130s. All other vital signs stable. On 4L O2 per NC. Nitro gtt continues at 5mg/hr to Lf Wrist PIV. NS TKO. Lf AC PIV saline locked. No complaints of chest pain. Patient very drowsy. Slept well throughout shift. Rt. radial site eccymotic and swollen. Fingers, hand, and arm purple. Destat saturated with drainage. No changes throughout shift. Pulse palpable. Movement and feeling unchanged. Patient turned Q2 hours. Juárez patent with 450ml uop. Ostomy bag did not need emptied this shift. Patient calm and cooperative with all cares. Follow up: Will continue to monitor Rt. hand, CP, and vitals.
--- NOTE | 2016-10-13 09:05 | NUR ---
DIABETES CONSULT: Patient with A1C of 13% and resides at [facility]. Her medication list indicates she was receiving Levemir 44 units at the snf for her diabetes. Given the patient's A1C, anticipate she will need Novolog dosing with meals upon discharge. Patient will be given Novolog Moderate correction today in addition to her Levemir 44 units. Patient is not a candidate for education. Will continue to trend blood sugars today and reevaluate in the morning.
--- NOTE | 2016-10-13 13:23 | NUR ---
Reviewed chart, patient resides at [facility]. Will discharge back there when ready for discharge.
--- NOTE | 2016-10-13 17:00 | NUR ---
Significant Event: Disoriented to time/place. Forgetful at times. VSS on 2L NC. L)AC and L) wrist IVs saline locked. R) radial cath site still has hematomma/eccymosis but is improving. Gauze/tagaderm changed and C/D/I. 3+ edema in R) hand and thready pulse. Patient denies numbness and tingling. Patient ambulated in halls x2 with therapy about 50ft at a time. Lasix 40mg given x1. Echo completed and renal ultrasound completed. Nephrology consulted. Strict I/O and daily weights ordered.
--- NOTE | 2016-10-13 17:07 | NUR ---
Received call from patient nurse that family wants to talk with me. I went to waiting room and talked with 3 daughters and granddaughter. They have called [facility] in [place] and talked with Manuela and they have a private room open and would like their mom to move there on discharge. Let them know I will start referral to Manuela first thing in the morning and that if they accept thats fine, will plan on dc to them when physician indicates ready for discharge. Also discussed if for some reason [place] cannot accept and physician says ready for discharge, then she would discharge back to [facility] and they can work on moving to other SNF from there. They are agreeable with this plan. Will call daughter Chyna Encarnacion [phone] or granddaughter Sharmila Linda [phone] with update tomorrow if not in patient room. They report their mom doesn't know they want her to move yet, but daughter Chyna will talk with her about it once she knows has been accepted at [facility]. Will follow.
[2016-10-14 04:01] LABS: ALBUMIN 2.6 gm/dL (3.5-5.0); ANION GAP 11.2 (10.0-19.0); CALCIUM 8.9 mg/dL (8.5-10.5); CREATININE 1.9 mg/dL (0.5-1.1); POTASSIUM 4.2 mMol/L (3.7-5.1); TOTAL BILIRUBIN 0.6 mg/dL (0.0-1.5); TOTAL PROTEIN 5.7 g/dL (6.0-8.4)
[2016-10-14 04:33] LABS: BASOPHIL # 0.1 K/uL (0.0-0.2); BASOPHIL % 0.8 %; EOSINOPHIL # 0.3 K/uL (0.0-0.5); EOSINOPHIL % 2.8 %; HEMATOCRIT 43.8 % (30.0-46.0); HEMOGLOBIN 14.1 g/dL (10.0-15.0); IMMATURE GRANULOCYTE # 0.1 K/uL (0.0-0.3); IMMATURE GRANULOCYTE % 0.8 %; LYMPHOCYTE # 1.4 K/uL (0.8-4.0); MCH 29.6 pg (27.0-34.0); MCHC 32.2 gm/dL (32.0-36.5); MCV 91.8 fl (83.0-98.0); MONOCYTE % 8.4 %; MPV 11.6 fl (9.4-12.4); NEUTROPHIL # (ANC) 8.9 K/uL (1.8-7.8); NEUTROPHIL % 75.2 %; NRBC % 0 /100WBC (0-0.00); PLATELET COUNT 201 K/uL (150-450); RBC 4.77 M/uL (3.00-5.00); RDW-CV 15.2 % (11.9-14.6); WBC 11.9 K/uL (4.0-11.0)
--- NOTE | 2016-10-14 05:09 | NUR ---
Significant event: Alert to self only. Up with 2 assist. On 2L Nc with sats in the mid to upper 90's. All other VSS. Juárez intact with 400ml of UOP. Right radial site ecchymotic, pulses palpable in both hands. No c/o pain throughout night.
--- NOTE | 2016-10-14 08:38 | NUR ---
Diabetes Consult: Patient with blood sugars running 193-277 yesterday. The patient did receive her first dose of Levemir 44 units yesterday morning at 0800. Fasting blood sugars much improved with morning at 155. The patient is receiving Novolog correction as well. Will continue to follow throughout the day. Anticipate she will do well on the current insulin regimen.
--- NOTE | 2016-10-14 09:42 | NUR ---
Called [facility] [phone] and faxed referral to Manuela at [phone]. She will review and call me back to let me know if they can accept tomorrow. Will follow.
--- NOTE | 2016-10-14 14:36 | NUR ---
Received message from Manuela at [facility] that they can accept when ready for discharge. Also that family needs to contact a local physician to follow her there. I called daughter Chyna Encarnacion [phone] and let her know the above, she will talk to her sister about what doctor and then call to ask them to accept and get us their phone number for our doctor to call them when discharged. Anticipate tomorrow possibly? I then called food services director at [facility] Yesenia and let her know, will touch base with them in the morning.
--- NOTE | 2016-10-14 16:09 | NUR ---
Significant Event: A/Ox3. VSS stalbe. Room air while awake and 2L while sleeping. Dioriented to time and place. Drowsy at times. Lungs slightly coarse in the bases with some expirtory wheezes noted. Ambulated in halls x2. Decreased appetite. Juárez had 1575ml out of clear yellow urine. Some pink tinged urine at end of shift from catheter being pulled. Ostomy had 1 mod BM semi formed. Patient denies pain.
[2016-10-15 03:42] LABS: BASOPHIL # 0.1 K/uL (0.0-0.2); BASOPHIL % 0.7 %; EOSINOPHIL # 0.3 K/uL (0.0-0.5); EOSINOPHIL % 2.2 %; HEMATOCRIT 42.3 % (30.0-46.0); HEMOGLOBIN 13.7 g/dL (10.0-15.0); IMMATURE GRANULOCYTE # 0.1 K/uL (0.0-0.3); IMMATURE GRANULOCYTE % 0.6 %; LYMPHOCYTE # 1.6 K/uL (0.8-4.0); LYMPHOCYTE % 13.4 %; MCH 29.7 pg (27.0-34.0); MCHC 32.4 gm/dL (32.0-36.5); MCV 91.8 fl (83.0-98.0); MONOCYTE % 8.3 %; MPV 11.7 fl (9.4-12.4); NEUTROPHIL % 74.8 %; NRBC % 0 /100WBC (0-0.00); PLATELET COUNT 233 K/uL (150-450); RBC 4.61 M/uL (3.00-5.00); RDW-CV 15.1 % (11.9-14.6); WBC 12.1 K/uL (4.0-11.0)
[2016-10-15 03:57] LABS: ALBUMIN 2.6 gm/dL (3.5-5.0); ANION GAP 13.6 (10.0-19.0); CALCIUM 8.9 mg/dL (8.5-10.5); CREATININE 1.9 mg/dL (0.5-1.1); PHOSPHORUS 2.3 mg/dL (2.5-4.9); POTASSIUM 3.6 mMol/L (3.7-5.1)
--- NOTE | 2016-10-15 04:54 | NUR ---
Significant Event: PATIENT IS DIORIENTED TO TIME/PLACE AND FORGETFUL. VSS. HR 70-80'S. SBP 100-120'S. AFEBRILE. 02 SATS IN LOW 90'S ON RA. STARTED ON 2L 02 DUE TO SLEEP APNEA. DESATS IN 80'S WHILE SLEEPING. NO C/O PAIN. LUNGS CLEAR/DIM WITH OCCASIONAL WHEEZES. UP WITH 2A WITH WALKER/GB. HAS OSTOMY TO LEFT LOWER QUADRANT. NO BM THIS SHIFT BUT PATIENT APPEARS TO BE DISTENDED. SEEMS TO BE BASELINE. DELGADO INTACT WITH 1125 ML UOP. RIGHT RADIAL HEMATOMA INTACT. AREA ECCHYMOTIC WITH GOLF BALL SIZED HEMATOMA AND RADIAL SITE WHERE CATH PROCEDURE WAS. SITE OPEN TO AREA. PULSE THREADY OTHERWISE CSM WNL. IV TO LEFT HAND SL. CONTINUES TO HAVE 1-2+ GENERALIZED EDEMA. ON ACHS ACCUCHECKS. Follow up: CONTINUE TO MONITOR KIDNEY FUNCTION AND PER PLAN OF CARE.
[2016-10-15 12:11] LABS: BILIRUBIN URINE NEGATIVE (NEGATIVE); BLOOD URINE 10 /UL (NEGATIVE); GLUCOSE URINE NEGATIVE (NEGATIVE); KETONE URINE NEGATIVE (NEGATIVE); LEUKOCYTES URINE 100 /UL (NEGATIVE); NITRITE URINE NEGATIVE (NEGATIVE); PROTEIN URINE NEGATIVE (NEGATIVE); UROBILINOGEN URINE NORMAL (NORMAL)
[2016-10-15 12:12] LABS: COLOR URINE COLORLESS (YELLOW); TURBIDITY URINE CLEAR (CLEAR)
[2016-10-15 12:38] LABS: AMORPHOUS URINE 1+ (NEGATIVE); BACTERIA URINE NEGATIVE (NEGATIVE); EPITHELIAL URINE NEGATIVE #/HPF (NEGATIVE); WBC URINE 50-100 #/HPF (NEGATIVE)
--- NOTE | 2016-10-15 14:49 | NUR ---
Talked with tanisha Clemente today [phone] Isidro Fulton will follow her mom at [facility], his phone number is [phone], I left that phone number on the chart for our physician to call on discharge, he hasn't seen patient before. Talked with patient nurse and then Manuela at [facility], pt getting overnight trend ox tonight and then likely ready for dc tomorrow, Manuela will call with time that works that they can come get pt, daughter requested that. Then was reviewing chart and talked with Jt Harrison APRN and pt will get lifevest fitted before she discharges as well. Called Tyler Zabala with [facility] [phone] and discussed pt dc plan for skilled stay at [facility], he can send a nurse out to [place] tomorrow to teach them how to put on the Lifevest and how to manage it there. I called [facility] back and left voicemail for Manuela with [facility] information and waiting for call back from them that they are okay to accept with [facility] and to give them Tyler's number to set up time to teach. Let tanisha Perea know that [phone]. Will follow.
--- NOTE | 2016-10-15 15:26 | NUR ---
Received call back from Manuela at [facility], they will call Tyler Zabala to ask questions about the Lifevest and then arrange time for [facility] Nurse to teach their staff about the Lifevest. She will call me back to let me know when they can accept.
--- NOTE | 2016-10-15 16:54 | NUR ---
Significant Event: VSS ON RA. OVERNIGHT TREND OX SCHEDULED THIS EVENING D/T SLEEP APNEA AND 1L/NC REQUIRED LASTNOC TO KEEP SATS >90%. LUNGS CLEAR/DIM. NO C/O PAIN. NEW PIV TO L) AC 22G SL'D. LASIX IV CHANGED TO PO 40MG BID. DELGADO TO DD WITH >2200ML UOP. ORDER FOR DELGADO TO BE DC'D THIS EVENING. PATIENT TO BE DISMISSED TO [facility] TOMORROW AFTER [facility] REP FITS PATIENT AND EDUCATES MO STAFF. WALKED IN HINES WITH CARDIAC REHAB AND PT, 1PA WITH WALKER AND GAIT BELT. ACHS ACCUCHECKS. LABS TODAY AND UA COMPLETE. Follow up: DC TO [facility] TOMORROW. EXIT ALARMS ON AT ALL TIMES.
[2016-10-16 04:17] LABS: BASOPHIL # 0.1 K/uL (0.0-0.2); BASOPHIL % 0.8 %; EOSINOPHIL # 0.2 K/uL (0.0-0.5); EOSINOPHIL % 1.3 %; HEMOGLOBIN 14.3 g/dL (10.0-15.0); IMMATURE GRANULOCYTE # 0.1 K/uL (0.0-0.3); IMMATURE GRANULOCYTE % 0.8 %; LYMPHOCYTE # 1.4 K/uL (0.8-4.0); LYMPHOCYTE % 12.1 %; MCH 29.5 pg (27.0-34.0); MCHC 32.5 gm/dL (32.0-36.5); MCV 90.7 fl (83.0-98.0); MONOCYTE # 1.1 K/uL (0.0-1.0); MONOCYTE % 9.3 %; MPV 11.6 fl (9.4-12.4); NEUTROPHIL # (ANC) 9.1 K/uL (1.8-7.8); NEUTROPHIL % 75.7 %; NRBC % 0 /100WBC (0-0.00); PLATELET COUNT 251 K/uL (150-450); RBC 4.85 M/uL (3.00-5.00); RDW-CV 15.5 % (11.9-14.6)
[2016-10-16 04:26] LABS: ALBUMIN 2.8 gm/dL (3.5-5.0); ANION GAP 12.6 (10.0-19.0); CALCIUM 9.4 mg/dL (8.5-10.5); MAGNESIUM 2.5 mg/dL (1.8-2.6); PHOSPHORUS 2.3 mg/dL (2.5-4.9); POTASSIUM 3.6 mMol/L (3.7-5.1)
--- NOTE | 2016-10-16 04:37 | NUR ---
Significant Event: Patient is alert and oriented to self and time. Disoriented to place. VSS on room air. Trend ox going this shift. HRs in the 80s-90s. SBPs in the 100s-1 teens. Afebrile. Up with 1 assist, walker, and gait belt. Ostomy to left side of abdomen. BM x 1. removed at 0000. 1000 mls out of and patient had 1 small void since. Denies any pain. Left AC IV, saline locked. ACHS accuchecks. Follow up: Dismissal to [facility] today.
--- NOTE | 2016-10-16 09:43 | NUR ---
Called [facility] [phone] and left voicemail for Manuela that patient ready for dc today and to call me back to talk about [facility] V[facility] coordination questions and when they will come get patient. Waiting call back.
--- NOTE | 2016-10-16 10:15 | NUR ---
Received call from Manuela at [facility], they will come get patient at 1300. The [facility] nurse will come to [facility] today to teach them about it, she is in the room now putting the vest on patient. I called to the floor and let patient nurse know, then called daughter Chyna [phone] and let her know, she will let her sister Brit know. Dr Fulton number on chart for physician to call and will give the nurse [facility] phone number to call report when she leaves. Will fax orders. Chyna let Susan at [facility] know they are moving their mom.
--- NOTE | 2016-10-16 10:55 | NUR ---
PATIENT ALERT, ORIENTED TO PERSON, PLACE AND TIME. HOWEVER FORGETFUL AND OCCASIONALLY IS CONFUSED TO TIME AND PLACE. CALM AND COOPERATIVE WITH CARES. APPROPRIATE WITH ANSWERING QUESTIONS. PIV TO L) AC TO BE REMOVED WITH GAUZE AND COBAN TO BE APPLIED. [facility] ATTACHED TO PATIENT THIS MORNING WITH EDUCATION ALSO PROVIDED TO DAUGHTER. [facility] REP WILL ALSO BE GIVING EDUCATION TO [facility] TODAY BEFORE PATIENT ARRIVAL. LAST VITALS: 124/58-MAP82, HR 95, 98.0, 20 RR, 94% ON RA. OCCASIONAL NON-PRODUCTIVE COUGH WITH ROBITUSSIN LAST GIVEN YESTERDAY. NO C/O PAIN. VOIDS PER BATHROOM WITH OCCASIONAL URGE INCONTINENCE. COLOSTOMY TO LEFT ABD WITH LAST BM 10/14, SOFT AND FORMED. AMBULATES WITH PT/CARDIAC REHAB 1PA WITH WALKER AND GAIT BELT. ACHS ACCUCHECKS WITH SSI AND LEVEMIR 44 UNITS GIVEN THIS AM. HEART CATH SITE TO R) RADIAL WITH ECCHYMOSIS TO HAND AND FA WITH EDEMA. IMPROVING WITH PULSE 1+ AND CSM WNL.
--- NOTE | 2016-10-16 14:25 | NUR ---
PATIENT TRANPORTED TO [facility]IA [place] [facility]SPORT STAFF'S WHEELCHAIR AT 1405 WITH DAUGHTER AND BELONGINGS. TRANSFER PACKET ALSO PROVIDED TO TRANSPORT STAFF AND INSTRUCTED TO GIVE TO PRIMARY NURSE. VERBAL REPORT GIVEN TO RONNA BRANNON AT [facility].
[2016-10-17] MEDS ORDERED: ASPIRIN LO-DOSE81 MG PO (17:28)
[2016-10-17] MEDS ORDERED: LIPITOR40 MG PO (17:28)
[2016-10-17] MEDS ORDERED: BRILINTA90 MG PO (17:29)
[2016-10-17] MEDS ORDERED: TOPROL XL25 MG PO (17:31)
[2016-10-17] MEDS ORDERED: THERAGRAN-M1 TAB PO (17:32)
[2016-10-17] MEDS ORDERED: NOVOLOG FL100 UNIT/1 SUB-Q (17:34)
[2016-10-17] MEDS ORDERED: REFRESH P.M. O3.5 GM OPHTH (17:36)
[2016-10-17] MEDS ORDERED: DULCOLAX10 MG R (17:39)
[2016-10-17] MEDS ORDERED: GLUCAGON EMERGEN1 MG SUB-Q (17:40)
[2016-10-17] MEDS ORDERED: GLUCOSE4 GM PO (17:41)
[2016-10-17] MEDS ORDERED: NITROSTAT0.4 MG SL (17:42)
== END 2016-10-16 14:10 | DRG 246 ==
LOC: GPCU 08:28
PROVIDERS: Family Medicine; Nurse Practitioner; ADMIT Internal Medicine Interventional Cardiology
PROC: 4A023N7 Measurement of Cardiac Sampling and Pressure, Left Heart, Percutaneous Approach (ICD-10-PCS; principal; 2016-10-12)
PROC: 3E033PZ Introduction of Platelet Inhibitor into Peripheral Vein, Percutaneous Approach (ICD-10-PCS; principal; 2016-10-12)
PROC: B2111ZZ Fluoroscopy of Multiple Coronary Arteries using Low Osmolar Contrast (ICD-10-PCS; principal; 2016-10-12)
PROC: 027034Z Dilation of Coronary Artery, One Artery with Drug-eluting Intraluminal Device, Percutaneous Approach (ICD-10-PCS; principal; 2016-10-12)
DX: I21.09 ST elevation (STEMI) myocardial infarction involving other coronary artery of anterior wall (principal); I50.21 Acute systolic (congestive) heart failure; N17.9 Acute kidney failure, unspecified; N18.4 Chronic kidney disease, stage 4 (severe); I13.0 Hypertensive heart and chronic kidney disease with heart failure and stage 1 through stage 4 chronic kidney disease, or unspecified chronic kidney disease; I97.410 Intraoperative hemorrhage and hematoma of a circulatory system organ or structure complicating a cardiac catheterization; I25.10 Atherosclerotic heart disease of native coronary artery without angina pectoris; I25.5 Ischemic cardiomyopathy; E78.5 Hyperlipidemia, unspecified; Z79.4 Long term (current) use of insulin; E66.01 Morbid (severe) obesity due to excess calories; Z68.36 Body mass index [BMI] 36.0-36.9, adult; E03.9 Hypothyroidism, unspecified; R26.9 Unspecified abnormalities of gait and mobility; K21.9 Gastro-esophageal reflux disease without esophagitis; M10.9 Gout, unspecified; M19.90 Unspecified osteoarthritis, unspecified site; Z93.3 Colostomy status; Z85.3 Personal history of malignant neoplasm of breast; Z86.718 Personal history of other venous thrombosis and embolism; Z96.641 Presence of right artificial hip joint; Z79.01 Long term (current) use of anticoagulants; E11.42 Type 2 diabetes mellitus with diabetic polyneuropathy; E11.65 Type 2 diabetes mellitus with hyperglycemia; G25.81 Restless legs syndrome; G89.29 Other chronic pain; H91.90 Unspecified hearing loss, unspecified ear; F03.90 Unspecified dementia, unspecified severity, without behavioral disturbance, psychotic disturbance, mood disturbance, and anxiety; Y84.0 Cardiac catheterization as the cause of abnormal reaction of the patient, or of later complication, without mention of misadventure at the time of the procedure; R40.0 Somnolence
CPT/HCPCS: C1725; C1769; C1874; C1887; C8929; C9600; C9606; J0583; J1327; J1644; J1940; J2250; J3010; J7030; J7060; Q9957

== ENCOUNTER → 2016-10-12 | Outpatient (CLI) | payer MEDICARE, OTHER, MEDICAID ==
[~2016-10-12] MED LIST: ALDACTONE25 MG PO; ASPIRIN LO-DOSE81 MG PO; BRILINTA90 MG PO; COUGH DROPS1 EACH PO; DULCOLAX10 MG R; GLUCAGON EMERGEN1 MG SUB-Q; GLUCOSE4 GM PO; K-TAB ER20 MEQ PO; LASIX40 MG PO; LEVEMIR100 UNIT/1 SUB-Q; LEVOTHROID (S125 MCG PO; LIPITOR40 MG PO; MAALOX ADVANCE355 ML PO; MILK OF MA400 MG/5 M PO; MYLICON OR GAS-80 MG PO; NEURONTIN100 MG PO; NEURONTIN600 MG PO; NITROSTAT0.4 MG SL; NOVOLOG FL100 UNIT/1 SUB-Q; PERCOCET 5-3251 EACH PO; PRILOSEC20 MG PO; REFRESH P.M. O3.5 GM OPHTH; REFRESH TEARS15 ML OPHTH; ROBITUSSIN DM120 ML PO; TENORMIN25 MG PO; THERAGRAN-M1 TAB PO; TOPROL XL25 MG PO; TYLENOL325 MG PO; ULTRAM50 MG PO; XARELTO20 MG PO; ZYLOPRIM100 MG PO
== END | disposition disaster alternative care site (69) ==
LOC: GAIR 08:44
DX: R07.89 Other chest pain (principal); E03.9 Hypothyroidism, unspecified; E11.9 Type 2 diabetes mellitus without complications; I10 Essential (primary) hypertension; K21.9 Gastro-esophageal reflux disease without esophagitis
CPT/HCPCS: A0422; A0431; A0436; J0282; J2270

== ENCOUNTER 2016-10-17 15:00 | Inpatient (IN) | payer MEDICARE, OTHER, MEDICAID ==
[~2016-10-17] VITALS: Ht 170.2 cm; Wt 101.3 kg
--- NOTE | ~2016-10-17 | HP ---
PATIENT'S NAME: ARI LUGO [facility] AGE: 86 Y [address] ROOM: [address] [place] [address] LOCATION: GPCU ADMIT DATE: 10/17/2016 History & Physical DISCHARGE DATE: FAMILY PHYSICIAN: RIVERA SONG MD ATTENDING PHYSICIAN: Candice Francisco DATE OF SERVICE: HISTORY OF PRESENT ILLNESS: This is an 86-year-old female, who was just discharged from [facility] by Dr. Kaylene Winters and Jeovanny Harrison APRN, on 10/16/2016, after an ST-elevation myocardial infarction with subsequent stenting to her LAD. She also experienced an ischemic cardiomyopathy with an ejection fraction of 25% to 30%. She was discharged due to the low EF with a LifeVest in place. She presented to [facility] with complaints of anterior sided chest pain that she described as aching. She had been experiencing it since breakfast that morning, and she also had complaints of shortness of breath. Due to her having elevated cardiac enzymes on their evaluation as well as ST elevations in V2 through V3 on their EKG, plan was made to transfer the patient to [facility] to be emergently taken to the catheterization suite by Dr. Francisco for coronary anatomy evaluation with selective coronary angiography. At the time of this H and P, she is resting comfortably in bed and is currently status post the selective coronary angiography and was in no need of coronary intervention with further stenting. Her pain has resolved and once again, she is resting comfortably. PAST MEDICAL HISTORY: Unchanged from dictation by Dr. Kaylene Winters on 10/12/2016. PAST SURGICAL HISTORY: Unchanged from dictation by Dr. Kaylene Winters on 10/12/2016. FAMILY HISTORY: Unchanged from dictation by Dr. Kaylene Winters on 10/12/2016. SOCIAL HISTORY: Unchanged from dictation by Dr. Kaylene Winters on 10/12/2016. HOME MEDICATIONS: 1. Tylenol 325 mg p.o. twice daily. 2. Lasix 40 mg p.o. daily. 3. Allopurinol 100 mg p.o. daily. 4. Potassium chloride 20 mEq p.o. daily. 5. Ultram 50 mg p.o. 3 times daily. 6. Levothyroxine 125 mcg p.o. once daily before meal. PATIENT'S NAME: ARI LUGO [facility] AGE: 86 Y [address] ROOM: [address] [place], [place] [address] LOCATION: [facility] ADMIT DATE: 10/17/2016 History & Physical DISCHARGE DATE: FAMILY PHYSICIAN: RIVERA SONG MD ATTENDING PHYSICIAN: Candice Francisco 7. Prilosec 40 mg p.o. daily. 8. Neurontin 100 mg p.o. 3 times daily. 9. Refresh eye drops, ophthalmically 4 times daily. 10. Milk of magnesia 30 mL p.o. as needed for constipation daily. 11. Levemir 44 units subcutaneous daily. 12. Aspirin 81 mg p.o. daily. 13. Lipitor 40 mg p.o. daily in the evening. 14. Brilinta 90 mg p.o. twice daily. 15. Metoprolol succinate or Toprol-XL 25 mg p.o. daily. 16. Multivitamin 1 tablet p.o. daily. 17. Insulin aspart subcutaneous per a.c. and at bedtime Accu-Cheks on a sliding scale. MEDICATION ALLERGIES: 1. Vicodin including morphine, codeine, hydrocodone, and Tylenol combined within Vicodin. 2. Propofol causing confusion for up to 2 months after anesthesia. 3. Singular causing dizziness. REVIEW OF SYSTEMS: Pertinent positive review of systems listed in the HPI. All other review of systems evaluated and negative. PHYSICAL EXAMINATION: VITAL SIGNS: Temperature 97.9, pulse 81, respirations 17, blood pressure 128/65, and O2 saturation 97% on 2 L nasal cannula. The patient weighs 100.6 kg. SKIN: [place], warm, and dry. EYES: Sclerae clear. No xanthelasmas. ENT: Oral mucosa is pink and moist. No jugular venous distention or carotid bruits. CHEST: Respirations are even and unlabored. Lung sounds show a few bibasilar rales. HEART: Regular rate and rhythm. Normal S1 and S2. There was presence of an S4. ABDOMEN: Soft, nontender, and obese. MUSCULOSKELETAL: Gait is normal. EXTREMITIES: Peripheral pulses palpable. No clubbing, cyanosis, or edema. She does have some ecchymosis noted to her right hand. PSYCHIATRIC: Alert and oriented. Mood and affect are appropriate. IMPRESSION AND PLAN: Per Dr. Francisco: 1. Previous large anterior wall myocardial infarction status post stenting to the left anterior descending. PATIENT'S NAME: ARI LUGO [facility] AGE: 86 Y [address] ROOM: [place] [address] LOCATION: [facility] ADMIT DATE: 10/17/2016 History & Physical DISCHARGE DATE: FAMILY PHYSICIAN: RIVERA SONG MD ATTENDING PHYSICIAN: Candice Francisco 2. Persistent ST elevation on EKG. 3. Ischemic cardiomyopathy with a LifeVest in place. 4. Paroxysmal atrial fibrillation. We will continue to monitor, evaluate, and treat as appropriate. Thank you for allowing [facility] to interact in the care of this patient. JEOVANNY HARRISON APRN FOR MD ADNIKA RAHMAN/ajith /[id number] D: 608 T: HISTORY & PHYSICAL
--- NOTE | ~2016-10-17 | CATH ---
Cardiac Diagnostic Report Demographics Patient Name BRITTNEY Fatima Gender Female Date of 1930 Age 86 year(s) Patient Number [id number] Date of Study 10/17/2016 Visit Number [id number] Room Number G63[address] [place] [id number] Ht 144.78 cm Wt 100.6 kg Referring Efstratiou Primary Physician Physician Jose Vazquez MD Performing Efstratiou Secondary Physician Physician Jose Vazquez MD Diagnostic Efstratiou Assisting Physician Physician Jose Vazquez MD Interventional Physician Seo Engineer Physician Findings and Conclusions Diagnostic Findings and Conclusion Patent recent stents No angiographic findings of STEMI ECG changes probably secondary to recent NC and new atrial fibrillation with RVR. Diagnostic Recommendations Medical treatment Procedure Description The patient was brought to the diagnostic cardiac catheterization-EP laboratory by emergency personal. Physician deemed procedure as EMERGENT. The planned puncture-incision site(s) were shaved and prepped with ChloraPrep and draped in the usual sterile manner. Conscious sedation, supplemental oxygen, and pain control medications were delivered by a registered nurse under physician guidance. Surface ECG rhythm, blood pressure measurement, and pulse oximetry were monitored throughout the procedure. Arterial access. The access site was infiltrated with lidocaine. The vessel was entered with the Seldinger technique. A sheath was advanced into the vessel and used for catheter placement. Selective left coronary angiography. A catheter was advanced into the left coronary vessel ostium under Fluoroscopic guidance. Contrast was injected by hand. Images were obtained in multiple projections. Arterial artery hemostasis was achieved. The patient was transferred to a regular nursing floor via cart accompanied by a nurse. The patient left the laboratory in stable condition. Diagnostic Cath Status: Emergency Procedure Procedure Type Diagnostic procedure:Angiography:, Coronary Angios Indications: Acute NC and Atrial Fibrillation w/ RVR. The procedure was explained in detail to the patient. Risks, complications and alternative treatments were reviewed. Written consent was obtained. Medications Reviewed with Patient prior to Procedure. Angiographic Findings Dominance: Right Cardiac Arteries and Lesion Findings LMCA: Lesion on LMCA: Ostial.25% stenosis . LAD: There is a previous stent on Prox LAD Proximal subsection. Lesion on Mid LAD: 30% stenosis . Lesion on 1st Diag: Ostial.50% stenosis . LCx: LCx and OM Patent RCA: See previous cath report Coronary Tree Procedure Data Procedure Date Date: 10/17/2016Start: 04:10 PMEnd: 04:41 PM Entry Locations - Retrograde Percutaneous access was performed through the Right Radial artery (Primary location). A 6 Fr sheath was inserted. Unsuccessful closure attempt was performed using: D-Stat Radial (D[employer]. Pavithra.). Hemostasis was successfully obtained using Mechanical Compression. Closure Comments: D-Stat radial put on by Diomedes. Procedure Medications Order and Administration + + +--------+---------+ !Time !Medication !Dosage !Route ! + + +--------+---------+ !10/17/2016 !PAE Radial Cocktail: Heparin 5000 units, ! !I.A. ! !04:12 PM !Nitroglycerin 200mcg, Verapamil 3 mg ! ! ! ! !(ACC_3) ! ! ! + + +--------+---------+ 10/17/2016 !Amiodarone !150 mg !I.V. ! !04:16 PM ! ! !bolus ! + + +--------+---------+ 10/17/2016 !Nitroglycerin ! !I.V. drip! !04:20 PM ! ! ! ! + + +--------+---------+ !10/17/2016 !0.9% NaCl !100 ! ! !04:22 PM ! !ml/hr ! ! + + +--------+---------+ !10/17/2016 !Amiodarone !1 mg/min!I.V. drip! !04:27 PM ! ! ! ! + + +--------+---------+ 10/17/2016 !Zofran !4 mg !I.V. ! !04:34 PM ! ! ! ! + + +--------+---------+ Devices Used - A6 Fr. XBLAD 3.5 Guide Catheterwas used for:Left coronary angiography. Contrast Material - Isovue 41612 ml Fluoroscopy Time: Diagnostic: 3:36 minutes. Total: 3:36 minutes. Fluoroscopy Dose: Diagnostic: 178 mGy. Total: 178 mGy. Estimated Blood Loss: 10 ml. Medical History Allergies - Other:(vicadin and singular). - Morphine. - Codiene. - Other:(Hydrocodone, Singulair, Vicodin). Risk Factors The patient risk factors include:prior PCI;obesity, treated hypercholesterolemia, treated hypertension, family history of premature CAD, insulin-treated diabetes mellitus, chronic lung disease, last creatinine: 2.2 mg/dl, creatinine clearance: 30.23 ml/min, dyslipidemia and prior NC . Admission Data Admission Date: 10/17/2016 Admission Time: 03:00 PM Admit Source: Transfer acute care facility Insurance Payors: Medicare. Clinical Evaluation Leading to Procedure - The patient's CAD presentation was assessed as: STEMI. - The patient's anginal syndrome during the past two weeks was assessed as: Class IV according to the [place] [employer] Classification System (CCS). Anti-anginal medications were prescribed during the past two weeks. The medication is: Beta Blockers. Snapshots Hemodynamics Condition: Rest Estimated: Heart Rate: 116 bpm Pressures (mmHg) +-----+ + !Site !Pressure ! +-----+ + !AO !116/75 (90) ! +-----+ + Shunts Oxygen Values O2 Capacity 199.92 Signatures dtt: Candice Francisco dtd: 10/17/16 1610 Physician Self Edit
--- NOTE | ~2016-10-17 | DS ---
PATIENT'S NAME: ARI LUGO [facility] AGE: 86 Y [address] ROOM: [id number] [place] [id number] LOCATION: GPCU ADMIT DATE: 10/17/2016 Discharge Summary DISCHARGE DATE: 10/20/2016 FAMILY PHYSICIAN: Ryan Fulotn MD ATTENDING PHYSICIAN: Candice Francisco PRIMARY DISCHARGE DIAGNOSIS: Paroxysmal atrial fibrillation. SECONDARY DISCHARGE DIAGNOSES: 1. Coronary artery disease. 2. Recent anterior wall myocardial infarction. 3. Ischemic cardiomyopathy. 4. Hyperlipidemia. 5. Chronic kidney disease. 6. Hypertension. 7. Urinary tract infection. PROCEDURES: Selective coronary angiography without need for intervention. HOSPITAL COURSE: This is an 86-year-old female, transferred from [facility] due to EKG changes and elevated cardiac enzymes. Please see history and physical for full details of admission. The patient was transferred to the catheterization suite where she underwent a selective coronary angiography through her right radial artery. She had patent coronary flow including stenting area. After the catheterization, she was started on amiodarone IV per protocol for atrial fibrillation. On 10/18/2016, she converted back to a sinus rhythm and was changed to p.o. amiodarone. There were orders to evaluate her Life Vest, which she was previously discharged on, but need for evaluation due to battery malfunction. She was started on Eliquis due to the AFib. She had complaints of frequent urination, so urinalysis was obtained. On 10/19/2016, she was started on ciprofloxacin for her UTI and her post catheterization radial site was stable. On 10/19/2016, she was found to be okay to be discharged back to her intermediate facility. DIAGNOSTICS: Cardiac enzyme trend during hospitalization showed a CPK of 206, then 187, then 156. CK-MB of 7.9, then 9.0, then 8.7, and troponin I of 9.23, then 7.3, then 7.36. She did have a one-time proBNP evaluation of 21,021. DISCHARGE ORDERS: The patient is discharged to [facility]. She is to be followed by Dr. Ryan Fulton and will have a followup appointment in 2 days with him with a CBC and a BMP. She will then follow up with Dr. Winters in [place] in 2 weeks with a BMP, proBNP, fasting lipid panel, and EKG. She is to follow a cardiac diet of low fat, low salt, and low cholesterol. She will be followed by Occupational Therapy and Physical PATIENT'S NAME: ARI LUGO [facility] AGE: 86 Y [address] ROOM: [place] [address] LOCATION: GPCU ADMIT DATE: 10/17/2016 Discharge Summary DISCHARGE DATE: 10/20/2016 FAMILY PHYSICIAN: Ryan Fulton MD ATTENDING PHYSICIAN: Candice Francisco Therapy. She is to use oxygen per nasal cannula as needed for keeping O2 sats greater than 90% and she will have Accu-Cheks a.c. and h.s. DISCHARGE MEDICATIONS: 1. Allopurinol 100 mg p.o. daily. 2. Amiodarone 200 mg p.o. twice daily. 3. Eliquis 2.5 mg p.o. twice daily. 4. Aspirin 81 mg p.o. daily, she is to stop taking aspirin on 11/18/2016 due to needing 1 month of triple therapy with recent anterior wall NJ, stenting, and dual antiplatelets in the setting of Eliquis. 5. Lipitor 40 mg p.o. daily at bedtime. 6. Cipro 250 mg p.o. daily, she is to stop taking this medication on 10/23/2016. 7. Lasix 40 mg p.o. daily. 8. Neurontin 100 mg p.o. 3 times daily. 9. NovoLog subcu on a sliding scale. 10. Levemir 44 units subcu daily. 11. Levothyroxine 125 mcg p.o. daily. 12. Toprol-XL 25 mg p.o. daily. 13. Multivitamin 1 tablet p.o. daily. 14. Prilosec 40 mg p.o. daily. 15. Potassium chloride 20 mEq p.o. daily. 16. Aldactone 25 mg p.o. daily. 17. Brilinta 90 mg p.o. twice daily. 18. Ultram 50 mg p.o. 3 times daily. 19. Ultram 50 mg p.o. every 6 hours as needed for pain, not to exceed 400 mg of Ultram in a 24-hour period. 20. Percocet 5/325 mg p.o. every 8 hours as needed for pain, not to exceed 3000 mg of Tylenol in a 24-hour period. 21. Glucose tablets 16 mg p.o. as needed for hypoglycemia. 22. Tylenol 650 mg p.o. twice daily, not to exceed 3000 mg of Tylenol in 24- hour period. 23. Tylenol 650 mg p.o. every 4 hours as needed for pain, not to exceed 3000 mg of Tylenol in a 24-hour period. 24. Dulcolax 10 mg rectally daily as needed for constipation. 25. Glucagon 1 mg subcu as needed for hypoglycemia. 26. Robitussin 10 mL every 4 hours as needed for cough. 27. Milk of magnesia 30 mL p.o. daily as needed for constipation. 28. Nitroglycerin 0.4 mg sublingual as needed for chest pain. 29. Mylicon 80 mg p.o. every 3 hours as needed for indigestion. 30. Refresh eye drops intraophthalmically 4 times daily as needed for dry eyes. 31. Maalox 30 mL p.o. every 2 hours as needed for indigestion. 32. Eucalyptus cough drops every 8 hours as needed for cough. 33. Refresh eye drops as needed for dry eyes. PATIENT'S NAME: ARI LUGO [facility] AGE: 86 Y [address] ROOM: [place] [address] LOCATION: [facility] ADMIT DATE: 10/17/2016 Discharge Summary DISCHARGE DATE: 10/20/2016 FAMILY PHYSICIAN: Ryan Fulton MD ATTENDING PHYSICIAN: Candice Francisco 34. Mineral oil eye ointment as needed for dry eyes. DISPOSITION: The patient is discharged to [facility] with a packet of information including instructions for the patient and the nursing staff regarding activity, diet, followup appointments, and medications. JEOVANNY LARSON APRN FOR MD DANIKA RAHMAN/devonl /[id number] d: 10/25/16955 t: 10/27/16950, DISCHARGE SUMMARY
[~2016-10-17 15:00] MED LIST changes: -ASPIRIN LO-DOSE81 MG PO; -BRILINTA90 MG PO; -DULCOLAX10 MG R; -GLUCAGON EMERGEN1 MG SUB-Q; -GLUCOSE4 GM PO; -LIPITOR40 MG PO; -NITROSTAT0.4 MG SL; -NOVOLOG FL100 UNIT/1 SUB-Q; -THERAGRAN-M1 TAB PO; -TOPROL XL25 MG PO
[2016-10-17] MEDS ORDERED: LIPITOR40 MG PO (17:28)
[2016-10-17] MEDS ORDERED: ASPIRIN LO-DOSE81 MG PO (17:28)
[2016-10-17] MEDS ORDERED: BRILINTA90 MG PO (17:29)
[2016-10-17] MEDS ORDERED: TOPROL XL25 MG PO (17:31)
[2016-10-17] MEDS ORDERED: THERAGRAN-M1 TAB PO (17:32)
[2016-10-17] MEDS ORDERED: NOVOLOG FL100 UNIT/1 SUB-Q (17:34)
[2016-10-17] MEDS ORDERED: REFRESH P.M. O3.5 GM OPHTH (17:36)
[2016-10-17] MEDS ORDERED: DULCOLAX10 MG R (17:39)
[2016-10-17] MEDS ORDERED: GLUCAGON EMERGEN1 MG SUB-Q (17:40)
[2016-10-17] MEDS ORDERED: GLUCOSE4 GM PO (17:41)
[2016-10-17] MEDS ORDERED: NITROSTAT0.4 MG SL (17:42)
--- NOTE | 2016-10-17 18:50 | NUR ---
86 Y/O FEMALE ADMITTED FOR STEMI, LIFE FLIGHTED IN AND TAKEN STRAIGHT TO THE [facility], HAD HEART CATH & A-FIB NOTED. PT WAS ADMITTED TO [facility] ON 10/12/16 FOR AN HI, HAD A HEART CATH & STENT PLACEMENT AT THAT TIME, WAS DISCHARGED YESTERDAY 10/16/16 WITH A LIFE VEST TO A FDC. PT C/O CHEST PAIN TODAY AND WAS ADMITTED BACK TO [facility]. MANY ALLERGIES - PLEASE SEE LIST IN [facility] MEDICAL & SURGICAL HISTORY - APPY, RT MASTECTOMY DUE TO BRST CA, VARICOSE VEIN SURGERY, COLOSTOMY, HIP FRACTURE WITH REPLACEMENT, RT CATARACT SURGERY, HX C-DIFF, NON SMOKER & NON DRINKER. DEMENTIA, MIGRAINES, TREMORS, HTN, CAD, HI, STENT, GOUT, A FIB, DIVERTICULITIS, DMII, THYROID DISEASE REPORT GIVEN TO PT PRIMARY CARE NURSE FAMILY ALREADY KNOWLEDGED ABOUT ADM EDUCATION
[2016-10-18 05:43] LABS: BASOPHIL # 0.1 K/uL (0.0-0.2); BASOPHIL % 0.8 %; EOSINOPHIL # 0.2 K/uL (0.0-0.5); EOSINOPHIL % 1.4 %; HEMATOCRIT 40.1 % (30.0-46.0); HEMOGLOBIN 12.8 g/dL (10.0-15.0); IMMATURE GRANULOCYTE # 0.1 K/uL (0.0-0.3); IMMATURE GRANULOCYTE % 0.8 %; LYMPHOCYTE # 1.2 K/uL (0.8-4.0); LYMPHOCYTE % 9.1 %; MCH 29.5 pg (27.0-34.0); MCHC 31.9 gm/dL (32.0-36.5); MCV 92.4 fl (83.0-98.0); MONOCYTE % 7.4 %; MPV 11.5 fl (9.4-12.4); NEUTROPHIL # (ANC) 10.7 K/uL (1.8-7.8); NEUTROPHIL % 80.5 %; NRBC % 0 /100WBC (0-0.00); PLATELET COUNT 244 K/uL (150-450); RBC 4.34 M/uL (3.00-5.00); RDW-CV 15.3 % (11.9-14.6); WBC 13.3 K/uL (4.0-11.0)
[2016-10-18 06:02] LABS: ANION GAP 13.2 (10.0-19.0); CALCIUM 8.9 mg/dL (8.5-10.5); CREATININE 1.9 mg/dL (0.5-1.1); POTASSIUM 3.2 mMol/L (3.7-5.1)
--- NOTE | 2016-10-18 07:05 | NUR ---
Significant Event: VSS.2L NC. INT CONFUSED DENIES CHEST PAIN, C/O DISCOMFORT TO R HAND.TRAMDOL GIVEN AND TYLENOL ECCHYMOTIC, NO CHANGES. HEPARIN GTT AND AMIO GTT PER PROTOCOL. VOIDS TO BSC, LLCOLOSTOMY. UP WITH 2 ASST/GB. CONVERTED TO SR APPRX [id number] 10/17. Follow up: CONT TO MONITOR
--- NOTE | 2016-10-18 16:06 | NUR ---
Significant Event: pt up to commode many times for void, odor urine, to resend for cx when get next one. Tylenol for headache and her ultram and neurontin scheduled. Johanne canela take pt until Thursday. Pt daughters here with her today. 02 room air today. R)radial bruised shelter up arm but soft and pulse adequate, pt uses splint. 2 asst for getting up, uses walker ok. Heparin dcd. Amiodarone to be off at 1645 po med to start. Rates have been 60-70s nsr. PT alert/oriented today. LIFEvest nurse here and gets it back on pt today. Follow up:aicd??
--- NOTE | 2016-10-19 05:12 | NUR ---
Significant Event: A/0 X 3, COOPERATIVE WITH CARES. ALL VSS, AFEBRILE. AMULATES 1-2 ASSIST TO BEDSIDE COMMODE. 1 PERCOCET GIVEN X 1 AT 0005. AT THAT TIME SHE DID FALL ASLEEP AND HAS BEEN RESTING WELL THE REST OF THE EVENING. Follow up: [facility] WILL TAKE ON THURSDAY.
--- NOTE | 2016-10-19 16:32 | NUR ---
Significant Event: pt eats alittle for meals. Up to commode alot, sometimes just after voiding. URine shows gram-rods, cx pending. Small bm from colosotmy, pouch changed pt has own supply. Pt family here with her today. Pain control with her ultram/neurontin. 02 room air. Left knee brace on. R)radial less swollen twister frame tender, good pulse, still bruised. Follow up:
[2016-10-20 03:44] LABS: BASOPHIL # 0.1 K/uL (0.0-0.2); BASOPHIL % 0.9 %; EOSINOPHIL # 0.3 K/uL (0.0-0.5); HEMATOCRIT 39.1 % (30.0-46.0); HEMOGLOBIN 12.8 g/dL (10.0-15.0); IMMATURE GRANULOCYTE # 0.1 K/uL (0.0-0.3); IMMATURE GRANULOCYTE % 0.9 %; LYMPHOCYTE # 1.2 K/uL (0.8-4.0); LYMPHOCYTE % 10.8 %; MCHC 32.7 gm/dL (32.0-36.5); MCV 91.6 fl (83.0-98.0); MONOCYTE # 0.9 K/uL (0.0-1.0); MPV 11.7 fl (9.4-12.4); NEUTROPHIL # (ANC) 8.6 K/uL (1.8-7.8); NEUTROPHIL % 76.4 %; NRBC % 0 /100WBC (0-0.00); PLATELET COUNT 255 K/uL (150-450); RBC 4.27 M/uL (3.00-5.00); RDW-CV 15.2 % (11.9-14.6); WBC 11.3 K/uL (4.0-11.0)
--- NOTE | 2016-10-20 05:47 | NUR ---
Significant Event: VSS.RA. R RADIAL IS ECCHYMOTIC,2+PULSE. TRAMADOL GIVEN FOR PAIN. UP TO [facility] MUTLI TIMES. BOTTOM RED. LIFE VEST ON. Follow up:DISMISSAL TO [facility] POSSIBLY 10/20
--- NOTE | 2016-10-20 10:13 | NUR ---
Received call from Manuela at [facility] and faxed update. Let her know looks like pt may be ready to dc to them today, will call her here in a little bit once I've reviewed physician progress note.
--- NOTE | 2016-10-20 12:06 | NUR ---
Reviewed chart and talked with patient nurse RONNA Lambert. Talked with patient and daughter Brit at bedside. Called and faxed update and dc orders to Manuela at [facility], they are coming to get patient at 1330 today. Pt admitted again to [facility] for chest pain, onset afib. Going back to SNF today for skilled stay.
--- NOTE | 2016-10-20 12:28 | NUR ---
Patient is alert, oriented to person. HR 70-90's, SR. R) wrist and lower arm, edematous, tender, ice to arm. Afebrile. Had BM yesterday, and cholostomy bag changed. SBP 130's. Lungs clear/dim, RA. Bowel sounds active, c/o stomach upset this AM, better with mylanta. To go back to [facility]. Up 1 assist. Life vest on, patient and family re-educated on life vest, this stay.
== END 2016-10-20 17:25 | DRG 281 ==
LOC: GPCU 15:00
PROVIDERS: ADMIT Internal Medicine Cardiovascular Disease
PROC: B210YZZ Fluoroscopy of Single Coronary Artery using Other Contrast (ICD-10-PCS; principal; 2016-10-17)
DX: I21.3 ST elevation (STEMI) myocardial infarction of unspecified site (principal); N39.0 Urinary tract infection, site not specified; E11.22 Type 2 diabetes mellitus with diabetic chronic kidney disease; I48.0 Paroxysmal atrial fibrillation; I25.5 Ischemic cardiomyopathy; I25.118 Atherosclerotic heart disease of native coronary artery with other forms of angina pectoris; I25.84 Coronary atherosclerosis due to calcified coronary lesion; I12.9 Hypertensive chronic kidney disease with stage 1 through stage 4 chronic kidney disease, or unspecified chronic kidney disease; N18.9 Chronic kidney disease, unspecified; Z88.4 Allergy status to anesthetic agent; Z88.5 Allergy status to narcotic agent; Z79.84 Long term (current) use of oral hypoglycemic drugs; Z79.4 Long term (current) use of insulin; Z79.82 Long term (current) use of aspirin
CPT/HCPCS: C1769; C1887; C1894; J0282; J1644; J2405; J7030; J7060